=== PATIENT | female | born 1945 | race Asian ===

== ENCOUNTER 2018-01-22 16:46 | Inpatient (IN) | payer BC, OTHER ==
[2018-01-22 18:29] LABS: WHITE BLOOD COUNT 9.5 10^3/ul (4.8-10.8)
[2018-01-22 18:29] LABS: ADD MAN DIFF? NO; BASOPHIL # 0.1 10^3/ul (0.0-0.1); BASOPHILS % 0.6 % (0.0-2.0); EOSINOPHILS # 0.4 10^3/ul (0.0-0.5); EOSINOPHILS % 3.7 % (0.0-7.0); HEMATOCRIT 37.5 % (37.0-47.0); HEMOGLOBIN 11.9 g/dl (12.0-16.0); LYMPHOCYTES # 0.8 10^3/ul (0.8-2.9); LYMPHOCYTES % 7.9 % (15.0-51.0); MEAN CORPUSCULAR HEMOGLOBIN 29.5 pg (29.0-33.0); MEAN CORPUSCULAR HGB CONC 31.7 g/dl (32.0-37.0); MEAN CORPUSCULAR VOLUME 93.1 fl (82.0-101.0); MONOCYTE # 0.6 10^3/ul (0.3-0.9); MONOCYTES % 6.3 % (0.0-11.0); NEUTROPHIL # 7.7 10^3/ul (1.6-7.5); NEUTROPHILS % 81.1 % (39.0-77.0); PLATELET COUNT 199 10^3/UL (140-415); RED BLOOD COUNT 4.03 10^6/ul (4.20-5.40); RED CELL DISTRIBUTION WIDTH 15.9 % (11.5-14.5)
[2018-01-22] MEDS ORDERED: morphine 10 MG INJ IM (18:30)
[2018-01-22] MEDS: morphine 4 MG/ML VIAL IV (18:38)
[2018-01-22] MEDS: LIDOCAINE 1% (MDV) 10 ML INJ INJ (18:59)
[2018-01-22 19:04] LABS: ANION GAP 17 (8-16); BLOOD UREA NITROGEN 20 mg/dl (7-20); CALCIUM 9.6 mg/dl (8.4-10.2); CARBON DIOXIDE 31 mmol/L (21-31); CHLORIDE 96 mmol/L (97-110); CREATININE 4.04 mg/dl (0.44-1.00); GLUCOSE 87 mg/dl (70-220); POTASSIUM 4.3 mmol/L (3.5-5.1); SODIUM 140 mmol/L (135-144)
[2018-01-22] MEDS: LIDOCAINE 1% (MDV) 20 ML INJ INJ (20:01)
[2018-01-22] MEDS: LABETALOL HCL 20MG INJ IV (20:58)
[2018-01-23] MEDS ORDERED: morphine 2 MG INJ IV
[2018-01-23] MEDS ORDERED: VANCOMYCIN IV PER PHARMACY XX
[2018-01-23] MEDS ORDERED: GLUCOSE GEL 15 GRAM TUBE PO ×2 (00:30)
[2018-01-23] MEDS ORDERED: GLUCAGON 1 MG INJ IM (00:30)
[2018-01-23] MEDS ORDERED: DEXTROSE 50% 50 ML SYRINGE IV ×2 (00:30)
[2018-01-23] MEDS ORDERED: GLUCOSE GEL 15 GRAM TUBE BUCCAL (00:30)
[2018-01-23] MEDS: ACCU-CHEK XX (02:00)
[2018-01-23] MEDS ORDERED: LEVOTHYROXINE 75 MCG TAB (05:12)
[2018-01-23] MEDS ORDERED: hydrALAzine 20 MG INJ (05:26)
[2018-01-23] MEDS: hydrALAzine 20 MG INJ IV (05:29)
[2018-01-23] MEDS: PANTOPRAZOLE (EC) 40 MG TAB PO (06:39)
[2018-01-23] MEDS: LEVOTHYROXINE 75 MCG TAB PO (06:39)
[2018-01-23 06:56] LABS: ADD MAN DIFF? NO
[2018-01-23 07:04] LABS: WHITE BLOOD COUNT 7.7 10^3/ul (4.8-10.8)
[2018-01-23 07:04] LABS: BASOPHIL # 0.1 10^3/ul (0.0-0.1); BASOPHILS % 0.9 % (0.0-2.0); EOSINOPHILS # 0.3 10^3/ul (0.0-0.5); EOSINOPHILS % 4.4 % (0.0-7.0); HEMATOCRIT 32.2 % (37.0-47.0); LYMPHOCYTES # 0.8 10^3/ul (0.8-2.9); LYMPHOCYTES % 9.9 % (15.0-51.0); MEAN CORPUSCULAR HEMOGLOBIN 29.6 pg (29.0-33.0); MEAN CORPUSCULAR HGB CONC 31.1 g/dl (32.0-37.0); MEAN CORPUSCULAR VOLUME 95.3 fl (82.0-101.0); MEAN PLATELET VOLUME 9.1 fl (7.4-10.4); MONOCYTE # 0.6 10^3/ul (0.3-0.9); MONOCYTES % 8.1 % (0.0-11.0); NEUTROPHIL # 5.9 10^3/ul (1.6-7.5); NEUTROPHILS % 76.3 % (39.0-77.0); PLATELET COUNT 192 10^3/UL (140-415); RED BLOOD COUNT 3.38 10^6/ul (4.20-5.40); RED CELL DISTRIBUTION WIDTH 15.9 % (11.5-14.5)
[2018-01-23 07:20] LABS: ALANINE AMINOTRANSFERASE 14 IU/L (13-69); ALBUMIN 4.2 g/dl (3.3-4.9); ALKALINE PHOSPHATASE 137 IU/L (42-121); ANION GAP 15 (8-16); ASPARTATE AMINO TRANSFERASE 19 IU/L (15-46); BILIRUBIN,INDIRECT 0.3 mg/dl (0-1.1); BILIRUBIN,TOTAL 0.3 mg/dl (0.2-1.3); BLOOD UREA NITROGEN 25 mg/dl (7-20); CALCIUM 9.1 mg/dl (8.4-10.2); CARBON DIOXIDE 33 mmol/L (21-31); CHLORIDE 97 mmol/L (97-110); CREATININE 5.46 mg/dl (0.44-1.00); GLUCOSE 79 mg/dl (70-220); POTASSIUM 4.5 mmol/L (3.5-5.1); SODIUM 140 mmol/L (135-144)
[2018-01-23] MEDS: INSULIN ASPART [NOVOLOG] 3 ML PEN SC ×4 (08:00→20:39)
[2018-01-23 08:10] LABS: HEMOGLOBIN A1C 5.3 % (0-5.9)
[2018-01-23] MEDS: LINAGLIPTIN 5 MG TABLET PO (09:07)
[2018-01-23] MEDS: LOSARTAN 50 MG TAB PO ×2 (09:08→20:40)
[2018-01-23] MEDS: AMLODIPINE 5 MG TAB PO ×2 (09:08→20:40)
[2018-01-23] MEDS: SERTRALINE 50 MG TAB PO (09:08)
[2018-01-23] MEDS: INSULIN DETEMIR [LEVEMIR] (100 UNITS/ML) SYG SC (09:09)
[2018-01-23] MEDS: EPOETIN 10000 UNITS/1 ML INJ (ESRD) SC (17:18)
[2018-01-23] MEDS: ATORVASTATIN 20 MG TAB PO (20:40)
[2018-01-24] MEDS: ACCU-CHEK XX (01:32)
[2018-01-24 06:20] LABS: ADD MAN DIFF? NO
[2018-01-24 06:28] LABS: WHITE BLOOD COUNT 6.2 10^3/ul (4.8-10.8)
[2018-01-24 06:28] LABS: BASOPHIL # 0.1 10^3/ul (0.0-0.1); BASOPHILS % 1.3 % (0.0-2.0); EOSINOPHILS # 0.4 10^3/ul (0.0-0.5); EOSINOPHILS % 6.5 % (0.0-7.0); HEMATOCRIT 32.5 % (37.0-47.0); HEMOGLOBIN 10.1 g/dl (12.0-16.0); LYMPHOCYTES # 0.8 10^3/ul (0.8-2.9); LYMPHOCYTES % 12.8 % (15.0-51.0); MEAN CORPUSCULAR HEMOGLOBIN 29.5 pg (29.0-33.0); MEAN CORPUSCULAR HGB CONC 31.1 g/dl (32.0-37.0); MEAN PLATELET VOLUME 8.9 fl (7.4-10.4); MONOCYTE # 0.6 10^3/ul (0.3-0.9); MONOCYTES % 10.4 % (0.0-11.0); NEUTROPHIL # 4.2 10^3/ul (1.6-7.5); NEUTROPHILS % 68.7 % (39.0-77.0); PLATELET COUNT 182 10^3/UL (140-415); RED BLOOD COUNT 3.42 10^6/ul (4.20-5.40); RED CELL DISTRIBUTION WIDTH 15.7 % (11.5-14.5)
[2018-01-24] MEDS: LEVOTHYROXINE 75 MCG TAB PO (06:50)
[2018-01-24] MEDS: PANTOPRAZOLE (EC) 40 MG TAB PO (06:50)
[2018-01-24 07:05] LABS: VANCOMYCIN,TROUGH 8.1 ug/ml (10.0-20.0)
[2018-01-24 07:09] LABS: ANION GAP 18 (8-16); BLOOD UREA NITROGEN 39 mg/dl (7-20); CALCIUM 8.8 mg/dl (8.4-10.2); CARBON DIOXIDE 28 mmol/L (21-31); CHLORIDE 96 mmol/L (97-110); CREATININE 7.04 mg/dl (0.44-1.00); GLUCOSE 98 mg/dl (70-220); POTASSIUM 5.1 mmol/L (3.5-5.1); SODIUM 137 mmol/L (135-144)
[2018-01-24] MEDS: INSULIN ASPART [NOVOLOG] 3 ML PEN SC ×4 (08:00→21:00)
[2018-01-24] MEDS: PIPER-TAZO 2.25 GM (PMX) 50 ML IVPB ×2 (08:59→19:07)
[2018-01-24] MEDS: LINAGLIPTIN 5 MG TABLET PO (09:00)
[2018-01-24] MEDS: AMLODIPINE 5 MG TAB PO ×2 (09:00→20:47)
[2018-01-24] MEDS: SERTRALINE 50 MG TAB PO (09:00)
[2018-01-24] MEDS: INSULIN DETEMIR [LEVEMIR] (100 UNITS/ML) SYG SC (09:00)
[2018-01-24] MEDS: LOSARTAN 50 MG TAB PO ×2 (09:01→20:47)
[2018-01-24] MEDS: VANCOMYCIN 1 GM 250 ML IVPB (12:17)
[2018-01-24 12:33] LABS: HEPATITIS B SURFACE ANTIGEN NEGATIVE (NEGATIVE)
[2018-01-24 12:51] LABS: HEPATITIS B SURFACE ANTIBODY POSITIVE (NEGATIVE)
[2018-01-24 14:47] LABS: INR 0.99; PROTIME 13.2 Sec (11.9-14.9)
[2018-01-24 14:48] LABS: PARTIAL THROMBOPLASTIN TIME 43.9 Sec (25.0-35.0)
[2018-01-24] MEDS: ATORVASTATIN 20 MG TAB PO (20:47)
[2018-01-24] MEDS: DEXTROSE 5%-0.45% NACL 1,000 ML IV (23:24)
[2018-01-24] MEDS ORDERED: morphine LIQ (10 MG/5 ML) CUP PO (23:30)
[2018-01-24] MEDS: ACETAMINOPHEN 325 MG TAB PO (23:39)
[2018-01-25] MEDS: INSULIN ASPART [NOVOLOG] 3 ML PEN SC ×3 (00:45→09:00)
[2018-01-25] MEDS: ACCU-CHEK XX (00:45)
[2018-01-25] MEDS: PIPER-TAZO 2.25 GM (PMX) 50 ML IVPB ×3 (02:44→20:18)
[2018-01-25] MEDS: hydrALAzine 20 MG INJ IV ×3 (03:50→14:28)
[2018-01-25] MEDS: PANTOPRAZOLE (EC) 40 MG TAB PO (05:00)
[2018-01-25] MEDS: LEVOTHYROXINE 75 MCG TAB PO ×2 (06:03→13:15)
[2018-01-25 06:49] LABS: ADD MAN DIFF? NO
[2018-01-25 06:54] LABS: BASOPHIL # 0.1 10^3/ul (0.0-0.1); BASOPHILS % 1.6 % (0.0-2.0); EOSINOPHILS # 0.4 10^3/ul (0.0-0.5); HEMATOCRIT 32.1 % (37.0-47.0); HEMOGLOBIN 9.9 g/dl (12.0-16.0); LYMPHOCYTES # 0.8 10^3/ul (0.8-2.9); LYMPHOCYTES % 14.3 % (15.0-51.0); MEAN CORPUSCULAR HGB CONC 30.8 g/dl (32.0-37.0); MEAN CORPUSCULAR VOLUME 94.1 fl (82.0-101.0); MEAN PLATELET VOLUME 9.1 fl (7.4-10.4); MONOCYTE # 0.7 10^3/ul (0.3-0.9); MONOCYTES % 12.5 % (0.0-11.0); NEUTROPHIL # 3.6 10^3/ul (1.6-7.5); NEUTROPHILS % 64.2 % (39.0-77.0); PLATELET COUNT 182 10^3/UL (140-415); RED BLOOD COUNT 3.41 10^6/ul (4.20-5.40)
[2018-01-25 06:54] LABS: WHITE BLOOD COUNT 5.6 10^3/ul (4.8-10.8)
[2018-01-25] MEDS ORDERED: PROPOFOL 200 MG INJ (07:00)
[2018-01-25 07:18] LABS: ANION GAP 16 (8-16); BLOOD UREA NITROGEN 23 mg/dl (7-20); CALCIUM 8.5 mg/dl (8.4-10.2); CARBON DIOXIDE 29 mmol/L (21-31); CHLORIDE 94 mmol/L (97-110); GLUCOSE 103 mg/dl (70-220); POTASSIUM 4.6 mmol/L (3.5-5.1); SODIUM 134 mmol/L (135-144)
[2018-01-25] MEDS: INSULIN DETEMIR [LEVEMIR] (100 UNITS/ML) SYG SC (09:03)
[2018-01-25] MEDS ORDERED: NEOSTIGMINE 3 MG/3 ML SYRINGE (09:29)
[2018-01-25] MEDS ORDERED: MIDAZOLAM 1 MG/ML 2 ML INJ (09:29)
[2018-01-25] MEDS ORDERED: GLYCOPYRROLATE 0.4 MG INJ (09:29)
[2018-01-25] MEDS ORDERED: FENTAnyl 50 MCG/ML VIAL (09:29)
[2018-01-25] MEDS ORDERED: ROCURONIUM 50 MG INJ (09:29)
[2018-01-25] MEDS ORDERED: LIDOCAINE 2% (SDV) 5 ML INJ (09:29)
[2018-01-25] MEDS ORDERED: PROPOFOL 20 ML (09:29)
[2018-01-25] MEDS ORDERED: DEXAMETHASONE 4 MG/ML 1 ML INJ (09:30)
[2018-01-25] MEDS ORDERED: ONDANSETRON 4 MG INJ (09:30)
[2018-01-25] MEDS: BUPIVACAINE 0.25% (MPF) 30 ML INJ (10:24)
[2018-01-25] MEDS: LIDOCAINE 1%/EPI 30 ML INJ (10:24)
[2018-01-25] MEDS: ACETAMINOPHEN 325 MG TAB PO ×2 (13:15→21:17)
[2018-01-25] MEDS: LOSARTAN 50 MG TAB PO ×2 (13:15→20:26)
[2018-01-25] MEDS: LINAGLIPTIN 5 MG TABLET PO (13:15)
[2018-01-25] MEDS: SERTRALINE 50 MG TAB PO (13:15)
[2018-01-25] MEDS: AMLODIPINE 5 MG TAB PO ×2 (13:16→20:27)
[2018-01-25] MEDS: DEXTROSE 5%-0.45% NACL 1,000 ML IV (13:20)
[2018-01-25] MEDS: Insulin NOVOLOG SS MILD Algorithm (SS with meals and bedtime) SC ×3 (13:24→20:36)
[2018-01-25] MEDS: EPOETIN 10000 UNITS/1 ML INJ (ESRD) SC (16:57)
[2018-01-25] MEDS ORDERED: INSULIN ASPART [NOVOLOG] 3 ML PEN SC (17:35)
[2018-01-25] MEDS: ATORVASTATIN 20 MG TAB PO (20:26)
[2018-01-26] MEDS: ACCU-CHEK XX (02:17)
[2018-01-26] MEDS: PIPER-TAZO 2.25 GM (PMX) 50 ML IVPB ×3 (04:14→18:23)
[2018-01-26 05:32] LABS: ADD MAN DIFF? NO
[2018-01-26 05:34] LABS: ABNORMAL IP MESSAGE 1; BASOPHILS % 0.5 % (0.0-2.0); HEMATOCRIT 31.6 % (37.0-47.0); HEMOGLOBIN 10.1 g/dl (12.0-16.0); LYMPHOCYTES # 0.5 10^3/ul (0.8-2.9); LYMPHOCYTES % 8.6 % (15.0-51.0); MEAN CORPUSCULAR HEMOGLOBIN 29.4 pg (29.0-33.0); MEAN CORPUSCULAR VOLUME 92.1 fl (82.0-101.0); MEAN PLATELET VOLUME 8.7 fl (7.4-10.4); MONOCYTE # 0.4 10^3/ul (0.3-0.9); MONOCYTES % 7.3 % (0.0-11.0); NEUTROPHIL # 4.7 10^3/ul (1.6-7.5); NEUTROPHILS % 83.1 % (39.0-77.0); PLATELET COUNT 193 10^3/UL (140-415); RED BLOOD COUNT 3.43 10^6/ul (4.20-5.40); RED CELL DISTRIBUTION WIDTH 14.6 % (11.5-14.5)
[2018-01-26 05:34] LABS: WHITE BLOOD COUNT 5.6 10^3/ul (4.8-10.8)
[2018-01-26 05:44] LABS: POSITIVE DIFF @See below
[2018-01-26] MEDS: PANTOPRAZOLE (EC) 40 MG TAB PO (06:21)
[2018-01-26 06:23] LABS: ANION GAP 17 (8-16); BLOOD UREA NITROGEN 35 mg/dl (7-20); CALCIUM 8.6 mg/dl (8.4-10.2); CARBON DIOXIDE 27 mmol/L (21-31); CHLORIDE 93 mmol/L (97-110); GLUCOSE 139 mg/dl (70-220); POTASSIUM 5.1 mmol/L (3.5-5.1); SODIUM 132 mmol/L (135-144)
[2018-01-26] MEDS: Insulin NOVOLOG SS MILD Algorithm (SS with meals and bedtime) SC ×4 (07:30→21:00)
[2018-01-26] MEDS: ACETAMINOPHEN 325 MG TAB PO ×3 (07:55→22:54)
[2018-01-26] MEDS: SERTRALINE 50 MG TAB PO (08:38)
[2018-01-26] MEDS: LINAGLIPTIN 5 MG TABLET PO (08:38)
[2018-01-26] MEDS: INSULIN DETEMIR [LEVEMIR] (100 UNITS/ML) SYG SC (08:39)
[2018-01-26] MEDS: LOSARTAN 50 MG TAB PO ×3 (08:40→21:37)
[2018-01-26] MEDS: AMLODIPINE 5 MG TAB PO ×3 (08:41→21:37)
[2018-01-26] MEDS: ATORVASTATIN 20 MG TAB PO (21:37)
[2018-01-27] MEDS: ACCU-CHEK XX ×2 (02:00→20:56)
[2018-01-27] MEDS: PIPER-TAZO 2.25 GM (PMX) 50 ML IVPB ×3 (03:08→18:36)
[2018-01-27] MEDS: PANTOPRAZOLE (EC) 40 MG TAB PO (06:01)
[2018-01-27] MEDS: LEVOTHYROXINE 75 MCG TAB PO (06:04)
[2018-01-27] MEDS: Insulin NOVOLOG SS MILD Algorithm (SS with meals and bedtime) SC ×4 (07:30→20:56)
[2018-01-27] MEDS: LOSARTAN 50 MG TAB PO ×2 (08:07→20:56)
[2018-01-27] MEDS: SERTRALINE 50 MG TAB PO (08:07)
[2018-01-27] MEDS: LINAGLIPTIN 5 MG TABLET PO (08:07)
[2018-01-27] MEDS: AMLODIPINE 5 MG TAB PO ×2 (08:08→20:56)
[2018-01-27] MEDS: INSULIN DETEMIR [LEVEMIR] (100 UNITS/ML) SYG SC (08:08)
[2018-01-27] MEDS: SODIUM HYPOCHLORITE (1/40) 1 APPLIC BTL IRR (13:59)
[2018-01-27] MEDS: ATORVASTATIN 20 MG TAB PO (20:55)
[2018-01-28] MEDS: PIPER-TAZO 2.25 GM (PMX) 50 ML IVPB (02:37)
[2018-01-28] MEDS: ACETAMINOPHEN 325 MG TAB PO ×2 (03:09→17:35)
[2018-01-28] MEDS: PANTOPRAZOLE (EC) 40 MG TAB PO (05:45)
[2018-01-28] MEDS: LEVOTHYROXINE 75 MCG TAB PO (05:45)
[2018-01-28] MEDS: Insulin NOVOLOG SS MILD Algorithm (SS with meals and bedtime) SC ×4 (08:51→20:35)
[2018-01-28] MEDS: INSULIN DETEMIR [LEVEMIR] (100 UNITS/ML) SYG SC (08:51)
[2018-01-28] MEDS: LOSARTAN 50 MG TAB PO ×2 (08:52→20:35)
[2018-01-28] MEDS: LINAGLIPTIN 5 MG TABLET PO (08:53)
[2018-01-28] MEDS: AMLODIPINE 5 MG TAB PO ×2 (08:53→20:34)
[2018-01-28] MEDS: SERTRALINE 50 MG TAB PO (08:53)
[2018-01-28] MEDS: SODIUM HYPOCHLORITE (1/40) 1 APPLIC BTL IRR (11:23)
[2018-01-28] MEDS: AMOXICILLIN/CLAV 500 MG TAB PO (11:23)
[2018-01-28] MEDS: EPOETIN 10000 UNITS/1 ML INJ (ESRD) SC (17:28)
[2018-01-28] MEDS: ATORVASTATIN 20 MG TAB PO (20:34)
[2018-01-29] MEDS: ACCU-CHEK XX (02:00)
[2018-01-29] MEDS: hydrALAzine 20 MG INJ IV (02:52)
[2018-01-29] MEDS: PANTOPRAZOLE (EC) 40 MG TAB PO (05:17)
[2018-01-29] MEDS: LEVOTHYROXINE 75 MCG TAB PO (06:28)
[2018-01-29] MEDS: AMLODIPINE 5 MG TAB PO ×2 (09:00→20:10)
[2018-01-29] MEDS: LOSARTAN 50 MG TAB PO ×2 (09:00→20:09)
[2018-01-29] MEDS: Insulin NOVOLOG SS MILD Algorithm (SS with meals and bedtime) SC ×4 (09:03→20:11)
[2018-01-29] MEDS: INSULIN DETEMIR [LEVEMIR] (100 UNITS/ML) SYG SC (09:04)
[2018-01-29] MEDS: SERTRALINE 50 MG TAB PO (09:05)
[2018-01-29] MEDS: LINAGLIPTIN 5 MG TABLET PO (09:05)
[2018-01-29] MEDS: AMOXICILLIN/CLAV 500 MG TAB PO (09:05)
[2018-01-29] MEDS: SODIUM HYPOCHLORITE (1/40) 1 APPLIC BTL IRR (09:07)
[2018-01-29] MEDS: ACETAMINOPHEN 325 MG TAB PO (18:27)
[2018-01-29] MEDS: ATORVASTATIN 20 MG TAB PO (20:09)
[2018-01-30] MEDS: ACCU-CHEK XX (01:09)
[2018-01-30] MEDS: PANTOPRAZOLE (EC) 40 MG TAB PO (06:12)
[2018-01-30] MEDS: LEVOTHYROXINE 75 MCG TAB PO (06:13)
[2018-01-30 06:59] LABS: ADD MAN DIFF? NO
[2018-01-30 07:11] LABS: WHITE BLOOD COUNT 7.4 10^3/ul (4.8-10.8)
[2018-01-30 07:11] LABS: BASOPHILS % 0.5 % (0.0-2.0); EOSINOPHILS # 0.4 10^3/ul (0.0-0.5); EOSINOPHILS % 5.1 % (0.0-7.0); HEMATOCRIT 25.9 % (37.0-47.0); HEMOGLOBIN 8.7 g/dl (12.0-16.0); LYMPHOCYTES # 0.9 10^3/ul (0.8-2.9); LYMPHOCYTES % 12.7 % (15.0-51.0); MEAN CORPUSCULAR HEMOGLOBIN 30.7 pg (29.0-33.0); MEAN CORPUSCULAR HGB CONC 33.6 g/dl (32.0-37.0); MEAN CORPUSCULAR VOLUME 91.5 fl (82.0-101.0); MEAN PLATELET VOLUME 8.9 fl (7.4-10.4); MONOCYTE # 0.7 10^3/ul (0.3-0.9); MONOCYTES % 9.3 % (0.0-11.0); NEUTROPHIL # 5.3 10^3/ul (1.6-7.5); NEUTROPHILS % 71.6 % (39.0-77.0); NUCLEATED RED BLOOD CELLS% 0.3 /100WBC (0.0-0.0); PLATELET COUNT 218 10^3/UL (140-415); RED BLOOD COUNT 2.83 10^6/ul (4.20-5.40); RED CELL DISTRIBUTION WIDTH 16.1 % (11.5-14.5)
[2018-01-30 07:29] LABS: ANION GAP 13 (8-16); BLOOD UREA NITROGEN 24 mg/dl (7-20); CALCIUM 8.2 mg/dl (8.4-10.2); CARBON DIOXIDE 28 mmol/L (21-31); CHLORIDE 96 mmol/L (97-110); CREATININE 5.23 mg/dl (0.44-1.00); GLUCOSE 120 mg/dl (70-220); POTASSIUM 3.9 mmol/L (3.5-5.1); SODIUM 133 mmol/L (135-144)
[2018-01-30] MEDS: Insulin NOVOLOG SS MILD Algorithm (SS with meals and bedtime) SC ×3 (07:30→17:16)
[2018-01-30] MEDS: LINAGLIPTIN 5 MG TABLET PO (08:36)
[2018-01-30] MEDS: SERTRALINE 50 MG TAB PO (08:36)
[2018-01-30] MEDS: AMOXICILLIN/CLAV 500 MG TAB PO (08:36)
[2018-01-30] MEDS: AMLODIPINE 5 MG TAB PO (08:36)
[2018-01-30] MEDS: SODIUM HYPOCHLORITE (1/40) 1 APPLIC BTL IRR (08:36)
[2018-01-30] MEDS: LOSARTAN 50 MG TAB PO (08:37)
[2018-01-30] MEDS: INSULIN DETEMIR [LEVEMIR] (100 UNITS/ML) SYG SC (08:37)
[2018-01-30] MEDS: L ACIDOPHIL/B LACTIS/B LONGUM CAPSULE PO (09:35)
[2018-01-30] MEDS: EPOETIN 10000 UNITS/1 ML INJ (ESRD) SC (17:12)
== END 2018-01-30 17:40 | disposition home health service (06) | DRG 579 ==
LOC: E/R 16:46 → PP2 22:59
PROC: 0JB60ZX Excision of Chest Subcutaneous Tissue and Fascia, Open Approach, Diagnostic (ICD-10-PCS; principal; 2018-01-25 09:30)
PROC: 0J960ZZ Drainage of Chest Subcutaneous Tissue and Fascia, Open Approach (ICD-10-PCS; 2018-01-25 10:05)
PROC: 5A1D70Z Performance of Urinary Filtration, Intermittent, Less than 6 Hours Per Day (ICD-10-PCS; 2018-01-25 10:05)
PROC: 5A1D70Z Performance of Urinary Filtration, Intermittent, Less than 6 Hours Per Day (ICD-10-PCS; 2018-01-25 10:05)
PROC: 5A1D70Z Performance of Urinary Filtration, Intermittent, Less than 6 Hours Per Day (ICD-10-PCS; 2018-01-25 10:05)
DX: L02.213 Cutaneous abscess of chest wall (principal); N18.6 End stage renal disease; I13.2 Hypertensive heart and chronic kidney disease with heart failure and with stage 5 chronic kidney disease, or end stage renal disease; R22.2 Localized swelling, mass and lump, trunk; L03.313 Cellulitis of chest wall; E11.22 Type 2 diabetes mellitus with diabetic chronic kidney disease; Z99.2 Dependence on renal dialysis; I50.9 Heart failure, unspecified; E78.5 Hyperlipidemia, unspecified; K21.9 Gastro-esophageal reflux disease without esophagitis; E03.9 Hypothyroidism, unspecified; H91.90 Unspecified hearing loss, unspecified ear; E11.21 Type 2 diabetes mellitus with diabetic nephropathy; D63.1 Anemia in chronic kidney disease; Z95.0 Presence of cardiac pacemaker; B95.61 Methicillin susceptible Staphylococcus aureus infection as the cause of diseases classified elsewhere; B96.1 Klebsiella pneumoniae [K. pneumoniae] as the cause of diseases classified elsewhere
CPT/HCPCS: 36415; 71045; 76642; 80048; 80053; 80202; 82962; 83036; 84443; 85025; 85335; 85610; 85730; 86706; 87070; 87075; 87102; 87116; 87340; 88305; 88331; 88341; 88342; 90935; 96374; 99285-25

== ENCOUNTER 2018-01-31 17:46 | Emergency (ER) | payer BC ==
[2018-01-31 20:09] LABS: ADD MAN DIFF? NO
[2018-01-31 20:12] LABS: BASOPHILS % 0.4 % (0.0-2.0); EOSINOPHILS # 0.3 10^3/ul (0.0-0.5); HEMATOCRIT 23.4 % (37.0-47.0); HEMOGLOBIN 7.7 g/dl (12.0-16.0); LYMPHOCYTES # 1.1 10^3/ul (0.8-2.9); LYMPHOCYTES % 13.6 % (15.0-51.0); MEAN CORPUSCULAR HGB CONC 32.9 g/dl (32.0-37.0); MEAN CORPUSCULAR VOLUME 94.4 fl (82.0-101.0); MEAN PLATELET VOLUME 8.4 fl (7.4-10.4); MONOCYTE # 0.6 10^3/ul (0.3-0.9); MONOCYTES % 8.1 % (0.0-11.0); NEUTROPHIL # 5.7 10^3/ul (1.6-7.5); NEUTROPHILS % 73.1 % (39.0-77.0); PLATELET COUNT 188 10^3/UL (140-415); RED BLOOD COUNT 2.48 10^6/ul (4.20-5.40); RED CELL DISTRIBUTION WIDTH 17.3 % (11.5-14.5)
[2018-01-31 20:12] LABS: WHITE BLOOD COUNT 7.8 10^3/ul (4.8-10.8)
[2018-01-31 20:29] LABS: ANION GAP 15 (8-16); BLOOD UREA NITROGEN 16 mg/dl (7-20); CALCIUM 8.7 mg/dl (8.4-10.2); CARBON DIOXIDE 31 mmol/L (21-31); CHLORIDE 95 mmol/L (97-110); CREATININE 3.77 mg/dl (0.44-1.00); GLUCOSE 230 mg/dl (70-220); SODIUM 137 mmol/L (135-144)
[2018-01-31 20:32] LABS: INR 0.95; PROTIME 12.8 Sec (11.9-14.9)
[2018-01-31 20:33] LABS: PARTIAL THROMBOPLASTIN TIME 37.6 Sec (25.0-35.0)
[2018-01-31] MEDS: DESMOPRESSIN 16.5 MCG in SOD CHLORIDE 0.9% 50 ML IVPB (20:49)
== END 2018-01-31 22:09 | disposition home or self-care (01) ==
LOC: E/R 17:46
DX: L76.22 Postprocedural hemorrhage of skin and subcutaneous tissue following other procedure (principal); N18.6 End stage renal disease; I12.0 Hypertensive chronic kidney disease with stage 5 chronic kidney disease or end stage renal disease; Z79.4 Long term (current) use of insulin; Z99.2 Dependence on renal dialysis
CPT/HCPCS: 36415; 80048; 85025; 85610; 85730; 93005; 96374; 99284-25

== ENCOUNTER 2018-04-25 13:05 | Inpatient (IN) | payer BC ==
[2018-04-25 14:37] LABS: ADD MAN DIFF? NO
[2018-04-25 14:40] LABS: ABNORMAL IP MESSAGE 1; BASOPHILS % 0.6 % (0.0-2.0); EOSINOPHILS # 0.3 10^3/ul (0.0-0.5); EOSINOPHILS % 5.7 % (0.0-7.0); HEMATOCRIT 30.5 % (37.0-47.0); LYMPHOCYTES # 0.5 10^3/ul (0.8-2.9); LYMPHOCYTES % 10.4 % (15.0-51.0); MEAN CORPUSCULAR HEMOGLOBIN 30.3 pg (29.0-33.0); MEAN CORPUSCULAR HGB CONC 32.8 g/dl (32.0-37.0); MEAN CORPUSCULAR VOLUME 92.4 fl (82.0-101.0); MEAN PLATELET VOLUME 9.5 fl (7.4-10.4); MONOCYTE # 0.6 10^3/ul (0.3-0.9); MONOCYTES % 10.9 % (0.0-11.0); NEUTROPHIL # 3.7 10^3/ul (1.6-7.5); PLATELET COUNT 84 10^3/UL (140-415); RED CELL DISTRIBUTION WIDTH 15.7 % (11.5-14.5)
[2018-04-25 14:40] LABS: WHITE BLOOD COUNT 5.1 10^3/ul (4.8-10.8)
[2018-04-25 14:51] LABS: POSITIVE DIFF @See below
[2018-04-25 15:09] LABS: ALANINE AMINOTRANSFERASE 12 IU/L (13-69); ALBUMIN 4.2 g/dl (3.3-4.9); ALBUMIN/GLOBULIN RATIO 1.55; ALKALINE PHOSPHATASE 118 IU/L (42-121); ANION GAP 14 (5-13); ASPARTATE AMINO TRANSFERASE 29 IU/L (15-46); BLOOD UREA NITROGEN 43 mg/dl (7-20); CALCIUM 8.7 mg/dl (8.4-10.2); CARBON DIOXIDE 30 mmol/L (21-31); CHLORIDE 94 mmol/L (97-110); GLUCOSE 66 mg/dl (70-220); LIPASE 247 U/L (23-300); POTASSIUM 4.9 mmol/L (3.5-5.1); SODIUM 138 mmol/L (135-144); TOTAL PROTEIN 6.9 g/dl (6.1-8.1)
[2018-04-25 15:20] LABS: TROPONIN-I 0.042 ng/ml (0.000-0.120)
[2018-04-25 15:49] LABS: ADD UMIC YES; UR ASCORBIC ACID NEGATIVE (NEGATIVE); UR BACTERIA FEW /HPF (NONE SEEN); UR BILIRUBIN (Dip) NEGATIVE (NEGATIVE); UR BLOOD (Dip) 1+ mg/dL (NEGATIVE); UR CLARITY CLOUDY (CLEAR); UR COLOR AMBER (YELLOW); UR GLUCOSE (Dip) NEGATIVE (NEGATIVE); UR KETONES (Dip) NEGATIVE (NEGATIVE); UR LEUKOCYTE ESTERASE (Dip) 3+ Leu/ul (NEGATIVE); UR NITRITE (Dip) NEGATIVE (NEGATIVE); UR NONSQUAMOUS EPITHELIAL CELL 4 /HPF (NONE SEEN); UR RBC 41 /HPF (0-5); UR SPECIFIC GRAVITY (Dip) 1.015 (1.003-1.030); UR SQUAMOUS EPITHELIAL CELL MANY /HPF (FEW); UR TOTAL PROTEIN (Dip) 3+ mg/dl (NEGATIVE); UR UROBILINOGEN (Dip) NEGATIVE (NEGATIVE); UR WBC > 182 /HPF (0-5)
[2018-04-25] MEDS: CEFTRIAXONE 1 GM/50 ML (PMX) 50 ML IVPB (16:44)
[2018-04-25] MEDS: DEXTROSE 5%-0.45% NACL 1,000 ML IV (18:30)
[2018-04-25] MEDS ORDERED: DEXTROSE 50% 50 ML SYRINGE (18:45)
[2018-04-25] MEDS: INSULIN ASPART [NOVOLOG] 3 ML PEN SC (18:47)
[2018-04-25] MEDS: hydrALAzine 20 MG INJ IV (18:47)
[2018-04-25 18:52] LABS: HEPATITIS B SURFACE ANTIGEN NEGATIVE (NEGATIVE)
[2018-04-25] MEDS: DEXTROSE 50% 50 ML SYRINGE IV (18:55)
[2018-04-25 19:30] LABS: HEPATITIS B SURFACE ANTIBODY POSITIVE (NEGATIVE)
[2018-04-25] MEDS: ATORVASTATIN 20 MG TAB PO (23:48)
[2018-04-25] MEDS: AMLODIPINE 5 MG TAB PO (23:49)
[2018-04-26] MEDS: INSULIN ASPART [NOVOLOG] 3 ML PEN SC ×4 (00:15→17:32)
[2018-04-26 05:57] LABS: ADD MAN DIFF? NO
[2018-04-26 06:03] LABS: WHITE BLOOD COUNT 4.6 10^3/ul (4.8-10.8)
[2018-04-26 06:03] LABS: ABNORMAL IP MESSAGE 1; BASOPHIL # 0.1 10^3/ul (0.0-0.1); BASOPHILS % 1.1 % (0.0-2.0); EOSINOPHILS # 0.2 10^3/ul (0.0-0.5); EOSINOPHILS % 4.8 % (0.0-7.0); HEMATOCRIT 32.1 % (37.0-47.0); HEMOGLOBIN 10.6 g/dl (12.0-16.0); LYMPHOCYTES # 0.5 10^3/ul (0.8-2.9); LYMPHOCYTES % 11.5 % (15.0-51.0); MEAN CORPUSCULAR HEMOGLOBIN 30.5 pg (29.0-33.0); MEAN CORPUSCULAR VOLUME 92.5 fl (82.0-101.0); MEAN PLATELET VOLUME 10.2 fl (7.4-10.4); MONOCYTE # 0.4 10^3/ul (0.3-0.9); MONOCYTES % 9.6 % (0.0-11.0); NEUTROPHIL # 3.3 10^3/ul (1.6-7.5); NEUTROPHILS % 72.8 % (39.0-77.0); PLATELET COUNT 85 10^3/UL (140-415); RED BLOOD COUNT 3.47 10^6/ul (4.20-5.40); RED CELL DISTRIBUTION WIDTH 15.7 % (11.5-14.5)
[2018-04-26] MEDS: PANTOPRAZOLE (EC) 40 MG TAB PO (06:13)
[2018-04-26] MEDS: LEVOTHYROXINE 75 MCG TAB PO (06:13)
[2018-04-26 06:14] LABS: POSITIVE DIFF @See below
[2018-04-26 06:27] LABS: ALANINE AMINOTRANSFERASE 14 IU/L (13-69); ALBUMIN 4.3 g/dl (3.3-4.9); ALBUMIN/GLOBULIN RATIO 1.43; ALKALINE PHOSPHATASE 125 IU/L (42-121); ANION GAP 12 (5-13); ASPARTATE AMINO TRANSFERASE 35 IU/L (15-46); BLOOD UREA NITROGEN 23 mg/dl (7-20); CALCIUM 8.7 mg/dl (8.4-10.2); CARBON DIOXIDE 30 mmol/L (21-31); CHLORIDE 96 mmol/L (97-110); CHOLESTEROL 108 mg/dl (100-200); CREATININE 4.71 mg/dl (0.44-1.00); GLUCOSE 78 mg/dl (70-220); HDL CHOLESTEROL 54 mg/dl (33-92); LDL CHOLESTEROL,CALCULATED 37 mg/dl; POTASSIUM 4.5 mmol/L (3.5-5.1); SODIUM 138 mmol/L (135-144); TOTAL PROTEIN 7.3 g/dl (6.1-8.1); TRIGLYCERIDES 85 mg/dl (0-149)
[2018-04-26 06:45] LABS: IRON 42 ug/dl (35-150)
[2018-04-26 06:56] LABS: % IRON SATURATION 21 % SAT (22-52); TOTAL IRON BINDING CAPACITY 200 ug/dl (241-421)
[2018-04-26 08:12] LABS: HEMOGLOBIN A1C 5.2 % (0-5.9)
[2018-04-26] MEDS: LOSARTAN 50 MG TAB PO ×2 (08:45→20:20)
[2018-04-26] MEDS: NIFEdipine (XL) 30 MG TAB PO ×2 (08:45→20:20)
[2018-04-26] MEDS: SERTRALINE 50 MG TAB PO (08:45)
[2018-04-26] MEDS ORDERED: LOSARTAN 50 MG TAB PO (09:00)
[2018-04-26] MEDS: hydrALAzine 20 MG INJ IV ×2 (12:23→17:27)
[2018-04-26] MEDS: CEFTRIAXONE 1 GM/50 ML (PMX) 50 ML IVPB (13:57)
[2018-04-26] MEDS: EPOETIN 10000 UNITS/1 ML INJ (ESRD) SC (16:16)
[2018-04-26] MEDS ORDERED: GLUCAGON 1 MG INJ IM (17:00)
[2018-04-26] MEDS ORDERED: DEXTROSE 50% 50 ML SYRINGE IV ×2 (17:00)
[2018-04-26] MEDS ORDERED: GLUCOSE GEL 15 GRAM TUBE PO ×2 (17:00)
[2018-04-26] MEDS ORDERED: GLUCOSE GEL 15 GRAM TUBE BUCCAL (17:00)
[2018-04-26] MEDS: ATORVASTATIN 20 MG TAB PO (20:19)
[2018-04-27] MEDS: hydrALAzine 20 MG INJ IV ×2 (00:54→19:04)
[2018-04-27] MEDS: INSULIN ASPART [NOVOLOG] 3 ML PEN SC ×5 (05:13→20:46)
[2018-04-27 06:15] LABS: ADD MAN DIFF? NO
[2018-04-27 06:24] LABS: WHITE BLOOD COUNT 5.3 10^3/ul (4.8-10.8)
[2018-04-27 06:24] LABS: ABNORMAL IP MESSAGE 1; BASOPHILS % 0.8 % (0.0-2.0); EOSINOPHILS # 0.1 10^3/ul (0.0-0.5); EOSINOPHILS % 2.4 % (0.0-7.0); HEMATOCRIT 32.2 % (37.0-47.0); HEMOGLOBIN 10.6 g/dl (12.0-16.0); LYMPHOCYTES # 0.6 10^3/ul (0.8-2.9); LYMPHOCYTES % 10.7 % (15.0-51.0); MEAN CORPUSCULAR HEMOGLOBIN 30.3 pg (29.0-33.0); MEAN CORPUSCULAR HGB CONC 32.9 g/dl (32.0-37.0); MEAN PLATELET VOLUME 10.7 fl (7.4-10.4); MONOCYTE # 0.4 10^3/ul (0.3-0.9); MONOCYTES % 8.3 % (0.0-11.0); NEUTROPHIL # 4.1 10^3/ul (1.6-7.5); NEUTROPHILS % 77.4 % (39.0-77.0); PLATELET COUNT 74 10^3/UL (140-415); RED CELL DISTRIBUTION WIDTH 15.5 % (11.5-14.5)
[2018-04-27 06:45] LABS: ANION GAP 14 (5-13); BLOOD UREA NITROGEN 40 mg/dl (7-20); CALCIUM 8.7 mg/dl (8.4-10.2); CARBON DIOXIDE 26 mmol/L (21-31); CHLORIDE 96 mmol/L (97-110); CREATININE 6.76 mg/dl (0.44-1.00); GLUCOSE 93 mg/dl (70-220); PHOSPHORUS 4.1 mg/dl (2.5-4.9); POTASSIUM 5.5 mmol/L (3.5-5.1); SODIUM 136 mmol/L (135-144)
[2018-04-27 06:48] LABS: POSITIVE DIFF @See below
[2018-04-27] MEDS: PANTOPRAZOLE (EC) 40 MG TAB PO ×2 (06:49→07:00)
[2018-04-27] MEDS: LEVOTHYROXINE 75 MCG TAB PO ×2 (06:49→07:00)
[2018-04-27] MEDS: CEFTRIAXONE 1 GM/50 ML (PMX) 50 ML IVPB (13:59)
[2018-04-27] MEDS: SERTRALINE 50 MG TAB PO (14:00)
[2018-04-27] MEDS: NIFEdipine (XL) 30 MG TAB PO ×2 (14:01→20:46)
[2018-04-27] MEDS: LOSARTAN 50 MG TAB PO ×2 (14:01→20:46)
[2018-04-27] MEDS: ATORVASTATIN 20 MG TAB PO (20:46)
[2018-04-28] MEDS: hydrALAzine 20 MG INJ IV ×2 (01:25)
[2018-04-28] MEDS: ACCU-CHEK XX (01:29)
[2018-04-28] MEDS: NITROGLYCERIN 2% 1 GM OINT PKT TD ×5 (02:33→23:14)
[2018-04-28 06:02] LABS: ADD MAN DIFF? NO
[2018-04-28 06:04] LABS: WHITE BLOOD COUNT 5.7 10^3/ul (4.8-10.8)
[2018-04-28 06:04] LABS: ABNORMAL IP MESSAGE 1; BASOPHIL # 0.1 10^3/ul (0.0-0.1); BASOPHILS % 1.1 % (0.0-2.0); EOSINOPHILS # 0.2 10^3/ul (0.0-0.5); EOSINOPHILS % 2.6 % (0.0-7.0); HEMATOCRIT 33.4 % (37.0-47.0); HEMOGLOBIN 10.9 g/dl (12.0-16.0); LYMPHOCYTES # 0.9 10^3/ul (0.8-2.9); MEAN CORPUSCULAR HEMOGLOBIN 30.4 pg (29.0-33.0); MEAN CORPUSCULAR HGB CONC 32.6 g/dl (32.0-37.0); MEAN CORPUSCULAR VOLUME 93.3 fl (82.0-101.0); MEAN PLATELET VOLUME 9.5 fl (7.4-10.4); MONOCYTE # 0.7 10^3/ul (0.3-0.9); NEUTROPHIL # 3.9 10^3/ul (1.6-7.5); NEUTROPHILS % 68.6 % (39.0-77.0); PLATELET COUNT 72 10^3/UL (140-415); RED BLOOD COUNT 3.58 10^6/ul (4.20-5.40); RED CELL DISTRIBUTION WIDTH 15.4 % (11.5-14.5)
[2018-04-28] MEDS: PANTOPRAZOLE (EC) 40 MG TAB PO (06:13)
[2018-04-28] MEDS: LEVOTHYROXINE 75 MCG TAB PO (06:13)
[2018-04-28 06:26] LABS: POSITIVE DIFF @See below
[2018-04-28 06:31] LABS: ALANINE AMINOTRANSFERASE < 6 IU/L (13-69); ALKALINE PHOSPHATASE 134 IU/L (42-121); ANION GAP 12 (5-13); ASPARTATE AMINO TRANSFERASE 56 IU/L (15-46); BILIRUBIN,INDIRECT 0.2 mg/dl (0-1.1); BILIRUBIN,TOTAL 0.2 mg/dl (0.2-1.3); BLOOD UREA NITROGEN 27 mg/dl (7-20); CALCIUM 8.6 mg/dl (8.4-10.2); CARBON DIOXIDE 25 mmol/L (21-31); CHLORIDE 100 mmol/L (97-110); CREATININE 4.99 mg/dl (0.44-1.00); GLUCOSE 80 mg/dl (70-220); POTASSIUM 5.7 mmol/L (3.5-5.1); SODIUM 137 mmol/L (135-144)
[2018-04-28 06:37] LABS: ANION GAP 9 (5-13); BLOOD UREA NITROGEN 28 mg/dl (7-20); CALCIUM 8.6 mg/dl (8.4-10.2); CARBON DIOXIDE 30 mmol/L (21-31); CHLORIDE 98 mmol/L (97-110); CREATININE 4.87 mg/dl (0.44-1.00); GLUCOSE 84 mg/dl (70-220); SODIUM 137 mmol/L (135-144)
[2018-04-28] MEDS: INSULIN ASPART [NOVOLOG] 3 ML PEN SC ×4 (07:54→21:00)
[2018-04-28] MEDS: LOSARTAN 50 MG TAB PO ×2 (07:56→21:30)
[2018-04-28] MEDS: SERTRALINE 50 MG TAB PO (07:56)
[2018-04-28] MEDS: NIFEdipine (XL) 30 MG TAB PO ×2 (07:57→21:31)
[2018-04-28] MEDS: CEFTRIAXONE 1 GM/50 ML (PMX) 50 ML IVPB (13:55)
[2018-04-28] MEDS: ATORVASTATIN 20 MG TAB PO (21:30)
[2018-04-29] MEDS: hydrALAzine 20 MG INJ IV (01:14)
[2018-04-29] MEDS: ACETAMINOPHEN 500 MG TAB PO ×2 (01:21→09:59)
[2018-04-29] MEDS: ACCU-CHEK XX (01:31)
[2018-04-29] MEDS: NITROGLYCERIN 2% 1 GM OINT PKT TD ×2 (05:22→11:18)
[2018-04-29] MEDS: PANTOPRAZOLE (EC) 40 MG TAB PO (05:29)
[2018-04-29] MEDS: LEVOTHYROXINE 75 MCG TAB PO (05:30)
[2018-04-29 05:57] LABS: ANION GAP 14 (5-13); BLOOD UREA NITROGEN 27 mg/dl (7-20); CALCIUM 8.3 mg/dl (8.4-10.2); CARBON DIOXIDE 28 mmol/L (21-31); CHLORIDE 95 mmol/L (97-110); CREATININE 4.21 mg/dl (0.44-1.00); GLUCOSE 87 mg/dl (70-220); POTASSIUM 4.5 mmol/L (3.5-5.1); SODIUM 137 mmol/L (135-144)
[2018-04-29] MEDS: INSULIN ASPART [NOVOLOG] 3 ML PEN SC ×4 (07:58→21:00)
[2018-04-29] MEDS: SERTRALINE 50 MG TAB PO (08:00)
[2018-04-29] MEDS: LOSARTAN 50 MG TAB PO ×2 (08:00→21:16)
[2018-04-29] MEDS: NIFEdipine (XL) 60 MG TAB PO (08:03)
[2018-04-29] MEDS ORDERED: VALACYCLOVIR 500 MG TAB PO (09:00)
[2018-04-29] MEDS: VALACYCLOVIR 500 MG TAB PO (09:51)
[2018-04-29] MEDS: LEVOFLOXACIN 250 MG TAB PO (09:52)
[2018-04-29] MEDS: LABETALOL 100 MG TAB PO (09:52)
[2018-04-29 12:56] LABS: ADD UMIC YES; UR AMORPHOUS CRYSTAL FEW /HPF (NONE SEEN); UR ASCORBIC ACID NEGATIVE (NEGATIVE); UR BACTERIA FEW /HPF (NONE SEEN); UR BILIRUBIN (Dip) NEGATIVE (NEGATIVE); UR BLOOD (Dip) 2+ mg/dL (NEGATIVE); UR CLARITY CLOUDY (CLEAR); UR COLOR AMBER (YELLOW); UR GLUCOSE (Dip) NEGATIVE (NEGATIVE); UR KETONES (Dip) NEGATIVE (NEGATIVE); UR LEUKOCYTE ESTERASE (Dip) TRACE Leu/ul (NEGATIVE); UR NITRITE (Dip) NEGATIVE (NEGATIVE); UR NONSQUAMOUS EPITHELIAL CELL 2 /HPF (NONE SEEN); UR RBC 131 /HPF (0-5); UR SPECIFIC GRAVITY (Dip) 1.017 (1.003-1.030); UR SQUAMOUS EPITHELIAL CELL FEW /HPF (FEW); UR TOTAL PROTEIN (Dip) 3+ mg/dl (NEGATIVE); UR UROBILINOGEN (Dip) NEGATIVE (NEGATIVE); UR WBC 31 /HPF (0-5)
[2018-04-29] MEDS: ATORVASTATIN 20 MG TAB PO (21:16)
[2018-04-29] MEDS: NIFEdipine (XL) 30 MG TAB PO (21:16)
[2018-04-30] MEDS: ACCU-CHEK XX (01:28)
[2018-04-30] MEDS: INSULIN ASPART [NOVOLOG] 3 ML PEN SC ×4 (08:00→21:00)
[2018-04-30] MEDS: LEVOTHYROXINE 75 MCG TAB PO (08:27)
[2018-04-30] MEDS: PANTOPRAZOLE (EC) 40 MG TAB PO (08:28)
[2018-04-30] MEDS: SERTRALINE 50 MG TAB PO (08:30)
[2018-04-30] MEDS: NIFEdipine (XL) 60 MG TAB PO (08:30)
[2018-04-30] MEDS: VALACYCLOVIR 500 MG TAB PO (08:31)
[2018-04-30] MEDS: LOSARTAN 50 MG TAB PO ×2 (08:31→20:15)
[2018-04-30 08:52] LABS: ADD MAN DIFF? NO
[2018-04-30 08:58] LABS: ABNORMAL IP MESSAGE 1; BASOPHILS % 0.5 % (0.0-2.0); EOSINOPHILS # 0.2 10^3/ul (0.0-0.5); EOSINOPHILS % 5.2 % (0.0-7.0); HEMATOCRIT 32.3 % (37.0-47.0); HEMOGLOBIN 10.7 g/dl (12.0-16.0); LYMPHOCYTES # 0.5 10^3/ul (0.8-2.9); LYMPHOCYTES % 11.9 % (15.0-51.0); MEAN CORPUSCULAR HGB CONC 33.1 g/dl (32.0-37.0); MEAN CORPUSCULAR VOLUME 90.5 fl (82.0-101.0); MEAN PLATELET VOLUME 9.1 fl (7.4-10.4); MONOCYTE # 0.3 10^3/ul (0.3-0.9); MONOCYTES % 8.5 % (0.0-11.0); NEUTROPHILS % 73.4 % (39.0-77.0); PLATELET COUNT 91 10^3/UL (140-415); RED BLOOD COUNT 3.57 10^6/ul (4.20-5.40); RED CELL DISTRIBUTION WIDTH 14.7 % (11.5-14.5)
[2018-04-30 09:00] LABS: POSITIVE DIFF @See below
[2018-04-30] MEDS: SILVER SULFADIAZINE 1% 25 GM CR TOP ×2 (09:00→20:16)
[2018-04-30 09:11] LABS: ALANINE AMINOTRANSFERASE 24 IU/L (13-69); ALBUMIN 3.8 g/dl (3.3-4.9); ALBUMIN/GLOBULIN RATIO 1.26; ALKALINE PHOSPHATASE 121 IU/L (42-121); ANION GAP 10 (5-13); ASPARTATE AMINO TRANSFERASE 29 IU/L (15-46); BLOOD UREA NITROGEN 15 mg/dl (7-20); CALCIUM 8.1 mg/dl (8.4-10.2); CARBON DIOXIDE 31 mmol/L (21-31); CHLORIDE 98 mmol/L (97-110); CREATININE 3.11 mg/dl (0.44-1.00); GLUCOSE 109 mg/dl (70-220); POTASSIUM 3.8 mmol/L (3.5-5.1); SODIUM 139 mmol/L (135-144); TOTAL PROTEIN 6.8 g/dl (6.1-8.1)
[2018-04-30 09:13] LABS: PHOSPHORUS 3.1 mg/dl (2.5-4.9)
[2018-04-30] MEDS: hydrALAzine 20 MG INJ IV (17:38)
[2018-04-30] MEDS: ATORVASTATIN 20 MG TAB PO (20:16)
[2018-04-30] MEDS: NIFEdipine (XL) 30 MG TAB PO (21:41)
[2018-05-01] MEDS: ACETAMINOPHEN 500 MG TAB PO ×2 (00:28→09:37)
[2018-05-01] MEDS: ACCU-CHEK XX (01:54)
[2018-05-01 05:14] LABS: ADD MAN DIFF? NO
[2018-05-01 05:16] LABS: BASOPHILS % 0.8 % (0.0-2.0); EOSINOPHILS # 0.3 10^3/ul (0.0-0.5); EOSINOPHILS % 5.7 % (0.0-7.0); HEMATOCRIT 30.9 % (37.0-47.0); HEMOGLOBIN 10.3 g/dl (12.0-16.0); LYMPHOCYTES # 0.8 10^3/ul (0.8-2.9); LYMPHOCYTES % 17.5 % (15.0-51.0); MEAN CORPUSCULAR HEMOGLOBIN 30.2 pg (29.0-33.0); MEAN CORPUSCULAR HGB CONC 33.3 g/dl (32.0-37.0); MEAN CORPUSCULAR VOLUME 90.6 fl (82.0-101.0); MEAN PLATELET VOLUME 9.8 fl (7.4-10.4); MONOCYTE # 0.4 10^3/ul (0.3-0.9); MONOCYTES % 9.1 % (0.0-11.0); NEUTROPHIL # 3.2 10^3/ul (1.6-7.5); NEUTROPHILS % 66.5 % (39.0-77.0); PLATELET COUNT 110 10^3/UL (140-415); RED BLOOD COUNT 3.41 10^6/ul (4.20-5.40); RED CELL DISTRIBUTION WIDTH 14.8 % (11.5-14.5)
[2018-05-01 05:16] LABS: WHITE BLOOD COUNT 4.7 10^3/ul (4.8-10.8)
[2018-05-01 05:35] LABS: ANION GAP 9 (5-13); BLOOD UREA NITROGEN 36 mg/dl (7-20); CALCIUM 8.1 mg/dl (8.4-10.2); CARBON DIOXIDE 29 mmol/L (21-31); CHLORIDE 99 mmol/L (97-110); CREATININE 4.86 mg/dl (0.44-1.00); GLUCOSE 101 mg/dl (70-220); POTASSIUM 4.8 mmol/L (3.5-5.1); SODIUM 137 mmol/L (135-144)
[2018-05-01] MEDS: LEVOTHYROXINE 75 MCG TAB PO (06:37)
[2018-05-01] MEDS: PANTOPRAZOLE (EC) 40 MG TAB PO (06:37)
[2018-05-01] MEDS: INSULIN ASPART [NOVOLOG] 3 ML PEN SC ×4 (08:00→20:55)
[2018-05-01] MEDS: LOSARTAN 50 MG TAB PO ×2 (08:14→20:56)
[2018-05-01] MEDS: NIFEdipine (XL) 60 MG TAB PO (08:15)
[2018-05-01] MEDS: SILVER SULFADIAZINE 1% 25 GM CR TOP ×2 (08:15→20:55)
[2018-05-01] MEDS: VALACYCLOVIR 500 MG TAB PO (08:15)
[2018-05-01] MEDS: SERTRALINE 50 MG TAB PO (08:15)
[2018-05-01] MEDS: LEVOFLOXACIN 250 MG TAB PO (08:16)
[2018-05-01] MEDS ORDERED: METOPROLOL (XL) 25 MG TAB PO (09:00)
[2018-05-01] MEDS: hydrALAzine 20 MG INJ IV (12:23)
[2018-05-01] MEDS: ATORVASTATIN 20 MG TAB PO (20:55)
[2018-05-01] MEDS: DOXAZOSIN 1 MG TAB PO (20:57)
[2018-05-01] MEDS: NIFEdipine (XL) 30 MG TAB PO (20:57)
[2018-05-02] MEDS: ACCU-CHEK XX (01:55)
[2018-05-02 05:43] LABS: ADD MAN DIFF? NO
[2018-05-02 05:55] LABS: BASOPHIL # 0.1 10^3/ul (0.0-0.1); BASOPHILS % 1.1 % (0.0-2.0); EOSINOPHILS # 0.3 10^3/ul (0.0-0.5); EOSINOPHILS % 5.7 % (0.0-7.0); HEMATOCRIT 32.2 % (37.0-47.0); HEMOGLOBIN 10.6 g/dl (12.0-16.0); LYMPHOCYTES # 0.8 10^3/ul (0.8-2.9); LYMPHOCYTES % 15.9 % (15.0-51.0); MEAN CORPUSCULAR HEMOGLOBIN 29.9 pg (29.0-33.0); MEAN CORPUSCULAR HGB CONC 32.9 g/dl (32.0-37.0); MONOCYTE # 0.4 10^3/ul (0.3-0.9); MONOCYTES % 9.1 % (0.0-11.0); NEUTROPHIL # 3.2 10^3/ul (1.6-7.5); NEUTROPHILS % 67.6 % (39.0-77.0); PLATELET COUNT 115 10^3/UL (140-415); RED BLOOD COUNT 3.54 10^6/ul (4.20-5.40); RED CELL DISTRIBUTION WIDTH 14.7 % (11.5-14.5)
[2018-05-02 05:55] LABS: WHITE BLOOD COUNT 4.7 10^3/ul (4.8-10.8)
[2018-05-02] MEDS: PANTOPRAZOLE (EC) 40 MG TAB PO (06:08)
[2018-05-02] MEDS: LEVOTHYROXINE 75 MCG TAB PO (06:08)
[2018-05-02 06:35] LABS: ANION GAP 13 (5-13); BLOOD UREA NITROGEN 58 mg/dl (7-20); CARBON DIOXIDE 24 mmol/L (21-31); CHLORIDE 97 mmol/L (97-110); CREATININE 6.75 mg/dl (0.44-1.00); GLUCOSE 107 mg/dl (70-220); SODIUM 134 mmol/L (135-144)
[2018-05-02] MEDS: INSULIN ASPART [NOVOLOG] 3 ML PEN SC ×4 (08:39→20:23)
[2018-05-02] MEDS: SERTRALINE 50 MG TAB PO (11:45)
[2018-05-02] MEDS: NIFEdipine (XL) 60 MG TAB PO (11:45)
[2018-05-02] MEDS: LOSARTAN 50 MG TAB PO ×2 (11:45→20:19)
[2018-05-02] MEDS: VALACYCLOVIR 500 MG TAB PO (11:45)
[2018-05-02] MEDS: SILVER SULFADIAZINE 1% 25 GM CR TOP ×2 (11:46→20:19)
[2018-05-02] MEDS: hydrALAzine 20 MG INJ IV (13:40)
[2018-05-02] MEDS: ACETAMINOPHEN 500 MG TAB PO (13:49)
[2018-05-02] MEDS: CLONIDINE 0.2 MG/24 HR PATCH TRANSDERM (16:17)
[2018-05-02] MEDS: MINOXIDIL 2.5 MG TAB PO ×2 (17:16→20:19)
[2018-05-02] MEDS: NIFEdipine (XL) 30 MG TAB PO (20:18)
[2018-05-02] MEDS: ATORVASTATIN 20 MG TAB PO (20:18)
[2018-05-02] MEDS: DOXAZOSIN 2 MG TAB PO (20:19)
[2018-05-03] MEDS: ACCU-CHEK XX (02:00)
[2018-05-03 05:48] LABS: ADD MAN DIFF? NO
[2018-05-03 05:49] LABS: EOSINOPHILS # 0.3 10^3/ul (0.0-0.5); EOSINOPHILS % 6.8 % (0.0-7.0); HEMATOCRIT 30.9 % (37.0-47.0); HEMOGLOBIN 10.2 g/dl (12.0-16.0); LYMPHOCYTES # 0.6 10^3/ul (0.8-2.9); LYMPHOCYTES % 15.8 % (15.0-51.0); MEAN CORPUSCULAR HEMOGLOBIN 29.9 pg (29.0-33.0); MEAN CORPUSCULAR VOLUME 90.6 fl (82.0-101.0); MEAN PLATELET VOLUME 9.4 fl (7.4-10.4); MONOCYTE # 0.4 10^3/ul (0.3-0.9); NEUTROPHIL # 2.6 10^3/ul (1.6-7.5); NEUTROPHILS % 64.6 % (39.0-77.0); PLATELET COUNT 114 10^3/UL (140-415); RED BLOOD COUNT 3.41 10^6/ul (4.20-5.40); RED CELL DISTRIBUTION WIDTH 14.8 % (11.5-14.5)
[2018-05-03] MEDS: LEVOTHYROXINE 75 MCG TAB PO (05:56)
[2018-05-03] MEDS: PANTOPRAZOLE (EC) 40 MG TAB PO (05:56)
[2018-05-03 06:19] LABS: ANION GAP 12 (5-13); BLOOD UREA NITROGEN 47 mg/dl (7-20); CALCIUM 8.2 mg/dl (8.4-10.2); CARBON DIOXIDE 27 mmol/L (21-31); CHLORIDE 99 mmol/L (97-110); CREATININE 5.22 mg/dl (0.44-1.00); GLUCOSE 117 mg/dl (70-220); SODIUM 138 mmol/L (135-144)
[2018-05-03 07:15] LABS: FOLATE 7.2 ng/ml (2.8-20.0)
[2018-05-03] MEDS: INSULIN ASPART [NOVOLOG] 3 ML PEN SC ×4 (08:00→20:56)
[2018-05-03] MEDS: SERTRALINE 50 MG TAB PO (08:35)
[2018-05-03] MEDS: NIFEdipine (XL) 60 MG TAB PO (08:35)
[2018-05-03] MEDS: LOSARTAN 50 MG TAB PO ×2 (08:35→20:56)
[2018-05-03] MEDS: VALACYCLOVIR 500 MG TAB PO (08:35)
[2018-05-03] MEDS: MINOXIDIL 2.5 MG TAB PO ×3 (08:36→20:55)
[2018-05-03] MEDS: SILVER SULFADIAZINE 1% 25 GM CR TOP ×2 (08:37→20:57)
[2018-05-03] MEDS: EPOETIN 10000 UNITS/1 ML INJ (ESRD) SC (17:51)
[2018-05-03] MEDS: ATORVASTATIN 20 MG TAB PO (20:54)
[2018-05-03] MEDS: NIFEdipine (XL) 30 MG TAB PO (20:55)
[2018-05-03] MEDS: DOXAZOSIN 2 MG TAB PO (20:55)
[2018-05-04] MEDS: ACCU-CHEK XX (02:00)
[2018-05-04] MEDS: LEVOTHYROXINE 75 MCG TAB PO (06:02)
[2018-05-04] MEDS: PANTOPRAZOLE (EC) 40 MG TAB PO (06:02)
[2018-05-04 06:05] LABS: ADD MAN DIFF? NO
[2018-05-04 06:12] LABS: EOSINOPHILS # 0.2 10^3/ul (0.0-0.5); EOSINOPHILS % 5.5 % (0.0-7.0); HEMATOCRIT 28.9 % (37.0-47.0); HEMOGLOBIN 9.9 g/dl (12.0-16.0); LYMPHOCYTES # 0.6 10^3/ul (0.8-2.9); LYMPHOCYTES % 15.3 % (15.0-51.0); MEAN CORPUSCULAR HEMOGLOBIN 31.1 pg (29.0-33.0); MEAN CORPUSCULAR HGB CONC 34.3 g/dl (32.0-37.0); MEAN CORPUSCULAR VOLUME 90.9 fl (82.0-101.0); MEAN PLATELET VOLUME 8.8 fl (7.4-10.4); MONOCYTE # 0.4 10^3/ul (0.3-0.9); MONOCYTES % 9.3 % (0.0-11.0); NEUTROPHIL # 2.7 10^3/ul (1.6-7.5); NEUTROPHILS % 67.6 % (39.0-77.0); PLATELET COUNT 104 10^3/UL (140-415); RED BLOOD COUNT 3.18 10^6/ul (4.20-5.40); RED CELL DISTRIBUTION WIDTH 14.6 % (11.5-14.5)
[2018-05-04 07:13] LABS: ANION GAP 12 (5-13); BLOOD UREA NITROGEN 66 mg/dl (7-20); CALCIUM 7.8 mg/dl (8.4-10.2); CARBON DIOXIDE 25 mmol/L (21-31); CHLORIDE 98 mmol/L (97-110); GLUCOSE 135 mg/dl (70-220); POTASSIUM 5.1 mmol/L (3.5-5.1); SODIUM 135 mmol/L (135-144)
[2018-05-04] MEDS: INSULIN ASPART [NOVOLOG] 3 ML PEN SC ×4 (08:00→20:30)
[2018-05-04] MEDS: SERTRALINE 50 MG TAB PO (08:58)
[2018-05-04] MEDS: VALACYCLOVIR 500 MG TAB PO (08:58)
[2018-05-04] MEDS: SILVER SULFADIAZINE 1% 25 GM CR TOP ×2 (08:58→20:29)
[2018-05-04] MEDS: SOD CHLORIDE 0.9% 500 ML IV (10:20)
[2018-05-04] MEDS: NIFEdipine (XL) 30 MG TAB PO ×2 (14:00→20:28)
[2018-05-04] MEDS: LOSARTAN 50 MG TAB PO ×2 (14:02→20:28)
[2018-05-04] MEDS: NIFEdipine (XL) 60 MG TAB PO (14:07)
[2018-05-04] MEDS: DOXAZOSIN 2 MG TAB PO (20:28)
[2018-05-04] MEDS: MINOXIDIL 2.5 MG TAB PO (20:28)
[2018-05-04] MEDS: ATORVASTATIN 20 MG TAB PO (20:28)
[2018-05-05] MEDS: ACCU-CHEK XX (02:00)
[2018-05-05 06:12] LABS: ADD MAN DIFF? NO
[2018-05-05 06:23] LABS: WHITE BLOOD COUNT 4.6 10^3/ul (4.8-10.8)
[2018-05-05 06:23] LABS: BASOPHIL # 0.1 10^3/ul (0.0-0.1); BASOPHILS % 1.3 % (0.0-2.0); EOSINOPHILS # 0.2 10^3/ul (0.0-0.5); EOSINOPHILS % 4.6 % (0.0-7.0); HEMATOCRIT 28.5 % (37.0-47.0); HEMOGLOBIN 9.6 g/dl (12.0-16.0); LYMPHOCYTES # 0.9 10^3/ul (0.8-2.9); LYMPHOCYTES % 18.7 % (15.0-51.0); MEAN CORPUSCULAR HEMOGLOBIN 30.6 pg (29.0-33.0); MEAN CORPUSCULAR HGB CONC 33.7 g/dl (32.0-37.0); MEAN CORPUSCULAR VOLUME 90.8 fl (82.0-101.0); MEAN PLATELET VOLUME 9.9 fl (7.4-10.4); MONOCYTE # 0.5 10^3/ul (0.3-0.9); MONOCYTES % 9.8 % (0.0-11.0); NEUTROPHILS % 64.7 % (39.0-77.0); PLATELET COUNT 120 10^3/UL (140-415); RED BLOOD COUNT 3.14 10^6/ul (4.20-5.40); RED CELL DISTRIBUTION WIDTH 15.1 % (11.5-14.5)
[2018-05-05] MEDS: PANTOPRAZOLE (EC) 40 MG TAB PO (06:30)
[2018-05-05] MEDS: LEVOTHYROXINE 75 MCG TAB PO (06:30)
[2018-05-05 07:06] LABS: ANION GAP 11 (5-13); BLOOD UREA NITROGEN 40 mg/dl (7-20); CARBON DIOXIDE 28 mmol/L (21-31); CHLORIDE 96 mmol/L (97-110); CREATININE 4.73 mg/dl (0.44-1.00); GLUCOSE 116 mg/dl (70-220); POTASSIUM 4.8 mmol/L (3.5-5.1); SODIUM 135 mmol/L (135-144)
[2018-05-05] MEDS: INSULIN ASPART [NOVOLOG] 3 ML PEN SC ×4 (08:00→21:00)
[2018-05-05] MEDS: SERTRALINE 50 MG TAB PO (08:06)
[2018-05-05] MEDS: VALACYCLOVIR 500 MG TAB PO (08:06)
[2018-05-05] MEDS: LOSARTAN 50 MG TAB PO ×2 (08:06→21:10)
[2018-05-05] MEDS: MINOXIDIL 2.5 MG TAB PO (08:07)
[2018-05-05] MEDS: NIFEdipine (XL) 60 MG TAB PO (08:08)
[2018-05-05] MEDS: SILVER SULFADIAZINE 1% 25 GM CR TOP ×2 (08:09→21:10)
[2018-05-05] MEDS: NIFEdipine (XL) 30 MG TAB PO (21:09)
[2018-05-05] MEDS: ATORVASTATIN 20 MG TAB PO (21:09)
[2018-05-05] MEDS: DOXAZOSIN 2 MG TAB PO (21:10)
[2018-05-06] MEDS: ACCU-CHEK XX (01:39)
[2018-05-06 06:11] LABS: ADD MAN DIFF? NO
[2018-05-06 06:15] LABS: WHITE BLOOD COUNT 4.6 10^3/ul (4.8-10.8)
[2018-05-06 06:15] LABS: BASOPHIL # 0.1 10^3/ul (0.0-0.1); BASOPHILS % 1.1 % (0.0-2.0); EOSINOPHILS # 0.2 10^3/ul (0.0-0.5); EOSINOPHILS % 3.7 % (0.0-7.0); HEMATOCRIT 29.3 % (37.0-47.0); HEMOGLOBIN 9.8 g/dl (12.0-16.0); LYMPHOCYTES # 0.9 10^3/ul (0.8-2.9); LYMPHOCYTES % 19.6 % (15.0-51.0); MEAN CORPUSCULAR HGB CONC 33.4 g/dl (32.0-37.0); MEAN CORPUSCULAR VOLUME 92.7 fl (82.0-101.0); MEAN PLATELET VOLUME 9.5 fl (7.4-10.4); MONOCYTE # 0.6 10^3/ul (0.3-0.9); NEUTROPHIL # 2.9 10^3/ul (1.6-7.5); NEUTROPHILS % 62.9 % (39.0-77.0); PLATELET COUNT 136 10^3/UL (140-415); RED BLOOD COUNT 3.16 10^6/ul (4.20-5.40); RED CELL DISTRIBUTION WIDTH 15.6 % (11.5-14.5)
[2018-05-06] MEDS: LEVOTHYROXINE 75 MCG TAB PO (06:29)
[2018-05-06] MEDS: PANTOPRAZOLE (EC) 40 MG TAB PO (06:29)
[2018-05-06 06:36] LABS: ANION GAP 13 (5-13); BLOOD UREA NITROGEN 60 mg/dl (7-20); CALCIUM 8.3 mg/dl (8.4-10.2); CARBON DIOXIDE 25 mmol/L (21-31); CHLORIDE 98 mmol/L (97-110); CREATININE 6.84 mg/dl (0.44-1.00); GLUCOSE 146 mg/dl (70-220); SODIUM 136 mmol/L (135-144)
[2018-05-06 06:59] LABS: POTASSIUM 4.9 mmol/L (3.5-5.1)
[2018-05-06] MEDS: SILVER SULFADIAZINE 1% 25 GM CR TOP ×2 (07:58→20:51)
[2018-05-06] MEDS: INSULIN ASPART [NOVOLOG] 3 ML PEN SC ×4 (08:17→21:26)
[2018-05-06] MEDS: NIFEdipine (XL) 60 MG TAB PO (08:50)
[2018-05-06] MEDS: SERTRALINE 50 MG TAB PO (08:50)
[2018-05-06] MEDS: LOSARTAN 50 MG TAB PO ×2 (08:50→20:50)
[2018-05-06] MEDS ORDERED: MINOXIDIL 2.5 MG TAB PO (09:00)
[2018-05-06] MEDS: EPOETIN 10000 UNITS/1 ML INJ (ESRD) SC (17:23)
[2018-05-06] MEDS: DOXAZOSIN 2 MG TAB PO (20:50)
[2018-05-06] MEDS: NIFEdipine (XL) 30 MG TAB PO (20:50)
[2018-05-06] MEDS: ATORVASTATIN 20 MG TAB PO (20:50)
[2018-05-07] MEDS: ACCU-CHEK XX (02:36)
[2018-05-07] MEDS: PANTOPRAZOLE (EC) 40 MG TAB PO (06:29)
[2018-05-07] MEDS: LEVOTHYROXINE 75 MCG TAB PO (06:29)
[2018-05-07 06:44] LABS: ANION GAP 14 (5-13); BLOOD UREA NITROGEN 72 mg/dl (7-20); CALCIUM 8.2 mg/dl (8.4-10.2); CARBON DIOXIDE 22 mmol/L (21-31); CHLORIDE 97 mmol/L (97-110); CREATININE 8.13 mg/dl (0.44-1.00); GLUCOSE 137 mg/dl (70-220); SODIUM 133 mmol/L (135-144)
[2018-05-07 06:53] LABS: POTASSIUM 4.9 mmol/L (3.5-5.1)
[2018-05-07] MEDS: SILVER SULFADIAZINE 1% 25 GM CR TOP ×2 (07:52→21:45)
[2018-05-07] MEDS: INSULIN ASPART [NOVOLOG] 3 ML PEN SC ×4 (07:54→22:10)
[2018-05-07] MEDS: SERTRALINE 50 MG TAB PO (08:44)
[2018-05-07] MEDS: LOSARTAN 50 MG TAB PO ×2 (08:44→21:48)
[2018-05-07] MEDS: NIFEdipine (XL) 60 MG TAB PO (08:44)
[2018-05-07] MEDS: ATORVASTATIN 20 MG TAB PO (21:46)
[2018-05-07] MEDS: DOXAZOSIN 2 MG TAB PO (21:48)
[2018-05-07] MEDS: NIFEdipine (XL) 30 MG TAB PO (21:48)
[2018-05-08] MEDS: ACCU-CHEK XX (02:58)
[2018-05-08 05:38] LABS: ADD MAN DIFF? NO
[2018-05-08 05:41] LABS: BASOPHIL # 0.1 10^3/ul (0.0-0.1); BASOPHILS % 1.3 % (0.0-2.0); EOSINOPHILS # 0.2 10^3/ul (0.0-0.5); EOSINOPHILS % 4.7 % (0.0-7.0); HEMOGLOBIN 9.9 g/dl (12.0-16.0); LYMPHOCYTES # 0.7 10^3/ul (0.8-2.9); LYMPHOCYTES % 17.9 % (15.0-51.0); MEAN CORPUSCULAR HGB CONC 34.1 g/dl (32.0-37.0); MEAN CORPUSCULAR VOLUME 90.9 fl (82.0-101.0); MEAN PLATELET VOLUME 9.8 fl (7.4-10.4); MONOCYTE # 0.5 10^3/ul (0.3-0.9); NEUTROPHIL # 2.4 10^3/ul (1.6-7.5); NEUTROPHILS % 61.3 % (39.0-77.0); PLATELET COUNT 142 10^3/UL (140-415); RED BLOOD COUNT 3.19 10^6/ul (4.20-5.40); RED CELL DISTRIBUTION WIDTH 16.1 % (11.5-14.5)
[2018-05-08 05:41] LABS: WHITE BLOOD COUNT 3.9 10^3/ul (4.8-10.8)
[2018-05-08] MEDS: PANTOPRAZOLE (EC) 40 MG TAB PO (06:00)
[2018-05-08] MEDS: LEVOTHYROXINE 75 MCG TAB PO (06:00)
[2018-05-08 06:23] LABS: ANION GAP 12 (5-13); BLOOD UREA NITROGEN 43 mg/dl (7-20); CALCIUM 8.1 mg/dl (8.4-10.2); CARBON DIOXIDE 27 mmol/L (21-31); CHLORIDE 96 mmol/L (97-110); CREATININE 5.42 mg/dl (0.44-1.00); GLUCOSE 118 mg/dl (70-220); POTASSIUM 4.5 mmol/L (3.5-5.1); SODIUM 135 mmol/L (135-144)
[2018-05-08] MEDS: INSULIN ASPART [NOVOLOG] 3 ML PEN SC ×2 (07:43→12:26)
[2018-05-08] MEDS: NIFEdipine (XL) 60 MG TAB PO (09:02)
[2018-05-08] MEDS: LOSARTAN 50 MG TAB PO (09:02)
[2018-05-08] MEDS: SERTRALINE 50 MG TAB PO (09:02)
[2018-05-08] MEDS: SILVER SULFADIAZINE 1% 25 GM CR TOP (09:03)
== END 2018-05-08 14:31 | disposition home health service (06) | DRG 917 ==
LOC: 6WM 04-26 01:02 → E/R 13:05 → 6WM 15:23
PROC: 5A1D70Z Performance of Urinary Filtration, Intermittent, Less than 6 Hours Per Day (ICD-10-PCS; principal; 2018-04-28)
DX: T37.5X1A Poisoning by antiviral drugs, accidental (unintentional), initial encounter (principal); N18.6 End stage renal disease; G92 Toxic encephalopathy; I13.2 Hypertensive heart and chronic kidney disease with heart failure and with stage 5 chronic kidney disease, or end stage renal disease; I50.32 Chronic diastolic (congestive) heart failure; N39.0 Urinary tract infection, site not specified; T42.6X1A Poisoning by other antiepileptic and sedative-hypnotic drugs, accidental (unintentional), initial encounter; E11.22 Type 2 diabetes mellitus with diabetic chronic kidney disease; E03.9 Hypothyroidism, unspecified; E78.5 Hyperlipidemia, unspecified; E11.649 Type 2 diabetes mellitus with hypoglycemia without coma; K21.9 Gastro-esophageal reflux disease without esophagitis; D63.1 Anemia in chronic kidney disease; B02.9 Zoster without complications; I25.10 Atherosclerotic heart disease of native coronary artery without angina pectoris; D69.6 Thrombocytopenia, unspecified; Z99.2 Dependence on renal dialysis; Z87.11 Personal history of peptic ulcer disease; Z79.4 Long term (current) use of insulin; Y92.009 Unspecified place in unspecified non-institutional (private) residence as the place of occurrence of the external cause
CPT/HCPCS: 36415; 70450; 71045; 80048; 80053; 80061; 81001; 82607; 82728; 82746; 82962; 83036; 83540; 83690; 84100; 84443; 84484; 85025; 86320; 86706; 87086; 87340; 90935; 93005; 97116; 97162; 97530; 99217; 99291-25; G0378

== ENCOUNTER 2018-08-29 17:37 | Inpatient (IN) | payer BC ==
[2018-08-29 18:32] LABS: ADD MAN DIFF? NO
[2018-08-29 18:36] LABS: WHITE BLOOD COUNT 12.6 10^3/ul (4.8-10.8)
[2018-08-29 18:36] LABS: ABNORMAL IP MESSAGE 1; BASOPHIL # 0.1 10^3/ul (0.0-0.1); BASOPHILS % 0.6 % (0.0-2.0); EOSINOPHILS # 0.1 10^3/ul (0.0-0.5); EOSINOPHILS % 1.1 % (0.0-7.0); HEMATOCRIT 30.7 % (37.0-47.0); HEMOGLOBIN 9.9 g/dl (12.0-16.0); LYMPHOCYTES # 0.3 10^3/ul (0.8-2.9); LYMPHOCYTES % 2.7 % (15.0-51.0); MEAN CORPUSCULAR HEMOGLOBIN 31.9 pg (29.0-33.0); MEAN CORPUSCULAR HGB CONC 32.2 g/dl (32.0-37.0); MEAN PLATELET VOLUME 9.2 fl (7.4-10.4); MONOCYTE # 0.9 10^3/ul (0.3-0.9); MONOCYTES % 7.4 % (0.0-11.0); NEUTROPHILS % 87.3 % (39.0-77.0); PLATELET COUNT 186 10^3/UL (140-415); RED CELL DISTRIBUTION WIDTH 14.1 % (11.5-14.5)
[2018-08-29 18:37] LABS: POSITIVE DIFF @See below
[2018-08-29 18:50] LABS: ALBUMIN 4.8 g/dl (3.3-4.9); ALKALINE PHOSPHATASE 166 IU/L (42-121); ANION GAP 14 (5-13); ASPARTATE AMINO TRANSFERASE 34 IU/L (15-46); BILIRUBIN,INDIRECT 0.1 mg/dl (0-1.1); BILIRUBIN,TOTAL 0.1 mg/dl (0.2-1.3); BLOOD UREA NITROGEN 19 mg/dl (7-20); CALCIUM 9.7 mg/dl (8.4-10.2); CARBON DIOXIDE 34 mmol/L (21-31); CHLORIDE 92 mmol/L (97-110); CREATININE 3.44 mg/dl (0.44-1.00); GLUCOSE 107 mg/dl (70-220); POTASSIUM 4.2 mmol/L (3.5-5.1); SODIUM 140 mmol/L (135-144); TOTAL PROTEIN 9.6 g/dl (6.1-8.1)
[2018-08-29 18:53] LABS: ALANINE AMINOTRANSFERASE < 6 IU/L (13-69)
[2018-08-29 19:03] LABS: TROPONIN-I 0.045 ng/ml (0.000-0.120)
[2018-08-29 19:45] LABS: AADO2 Arterial 96.7 mmHg (7.0-24.0); Allen Test ACCEPTAB; Arterial Base Excess 7.5 mmol/L (-3.0-3); Arterial Blood Gas Oxygen Sat 97.7 mmHG (95.0-100.0); Arterial Fraction of Oxyhgb 96.6 % (93.0-99.0); Arterial HCO3 31.3 mmol/L (22.0-26.0); Arterial MetHb 0.1 % (0.0-1.5); Arterial pCO2 40.9 mmhg (35-45); Blood Gas IEPAP 15/5; Blood Gas PS 10; MODE MASK - BIPAP; Site Right Radial
[2018-08-29] MEDS ORDERED: ONDANSETRON 4 MG INJ IV (20:00)
[2018-08-29] MEDS ORDERED: ACETAMINOPHEN 325 MG TAB PO (20:00)
[2018-08-29 23:53] LABS: HEPATITIS B SURFACE ANTIGEN NEGATIVE (NEGATIVE)
[2018-08-30 08:36] LABS: ADD MAN DIFF? NO
[2018-08-30] MEDS: AZITHROMYCIN 250 MG TAB PO (08:41)
[2018-08-30 08:46] LABS: ABNORMAL IP MESSAGE 1; BASOPHIL # 0.1 10^3/ul (0.0-0.1); BASOPHILS % 0.5 % (0.0-2.0); EOSINOPHILS # 0.2 10^3/ul (0.0-0.5); EOSINOPHILS % 1.5 % (0.0-7.0); HEMATOCRIT 30.5 % (37.0-47.0); HEMOGLOBIN 9.7 g/dl (12.0-16.0); LYMPHOCYTES # 0.5 10^3/ul (0.8-2.9); LYMPHOCYTES % 4.3 % (15.0-51.0); MEAN CORPUSCULAR HEMOGLOBIN 31.8 pg (29.0-33.0); MEAN CORPUSCULAR HGB CONC 31.8 g/dl (32.0-37.0); MEAN PLATELET VOLUME 9.2 fl (7.4-10.4); MONOCYTE # 1.1 10^3/ul (0.3-0.9); MONOCYTES % 9.4 % (0.0-11.0); NEUTROPHIL # 9.6 10^3/ul (1.6-7.5); NEUTROPHILS % 83.7 % (39.0-77.0); PLATELET COUNT 213 10^3/UL (140-415); RED BLOOD COUNT 3.05 10^6/ul (4.20-5.40); RED CELL DISTRIBUTION WIDTH 13.8 % (11.5-14.5)
[2018-08-30 08:46] LABS: WHITE BLOOD COUNT 11.5 10^3/ul (4.8-10.8)
[2018-08-30 09:05] LABS: IRON 21 ug/dl (35-150)
[2018-08-30 09:08] LABS: ANION GAP 15 (5-13); BLOOD UREA NITROGEN 27 mg/dl (7-20); CALCIUM 9.4 mg/dl (8.4-10.2); CARBON DIOXIDE 32 mmol/L (21-31); CHLORIDE 94 mmol/L (97-110); CREATININE 4.88 mg/dl (0.44-1.00); GLUCOSE 86 mg/dl (70-220); PHOSPHORUS 3.8 mg/dl (2.5-4.9); POTASSIUM 4.7 mmol/L (3.5-5.1); SODIUM 141 mmol/L (135-144)
[2018-08-30 09:13] LABS: POSITIVE DIFF @See below
[2018-08-30 09:14] LABS: % IRON SATURATION 13 % SAT (22-52); TOTAL IRON BINDING CAPACITY 166 ug/dl (241-421)
[2018-08-30] MEDS: PANTOPRAZOLE (EC) 40 MG TAB PO (09:52)
[2018-08-30] MEDS: LEVOTHYROXINE 75 MCG TAB PO (09:52)
[2018-08-30] MEDS: SERTRALINE 50 MG TAB PO (09:52)
[2018-08-30] MEDS: MULTIVIT/CA CARB/B CMPLX/FA TAB PO (09:52)
[2018-08-30] MEDS: LOSARTAN 50 MG TAB PO ×2 (09:53→20:31)
[2018-08-30] MEDS: LINAGLIPTIN 5 MG TABLET PO (09:53)
[2018-08-30] MEDS: NIFEdipine (XL) 60 MG TAB PO (09:53)
[2018-08-30] MEDS: ACETAMINOPHEN 325 MG TAB PO (10:00)
[2018-08-30] MEDS ORDERED: DEXTROSE 50% 50 ML SYRINGE IV ×2 (10:00)
[2018-08-30] MEDS ORDERED: GLUCAGON 1 MG INJ IM (10:00)
[2018-08-30] MEDS ORDERED: GLUCOSE GEL 15 GRAM TUBE PO ×2 (10:00)
[2018-08-30] MEDS: CEFTRIAXONE 1,000 MG in SOD CHLORIDE 0.9% 50 ML IVPB (11:04)
[2018-08-30 11:08] LABS: INR 1.06; PROTIME 13.9 Sec (11.9-14.9); PT RATIO 1.1
[2018-08-30] MEDS ORDERED: INSULIN ASPART [NOVOLOG] 3 ML PEN SC (11:20)
[2018-08-30] MEDS: Insulin NOVOLOG SS MILD Algorithm (NPO/TPN/ENTERAL FEEDS) SC ×2 (12:15→17:25)
[2018-08-30] MEDS: LIDOCAINE 1% (MPF) 5 ML VIAL (14:39)
[2018-08-30] MEDS: ALBUMIN HUMAN 25% 50 ML IV ×2 (15:50→15:52)
[2018-08-30] MEDS: EPOETIN 10000 UNITS/1 ML INJ (ESRD) SC (18:13)
[2018-08-30] MEDS: CLONIDINE 0.3 MG/24 HR PATCH TRANSDERM (20:30)
[2018-08-30] MEDS: ATORVASTATIN 20 MG TAB PO (20:31)
[2018-08-30] MEDS: DOXAZOSIN 2 MG TAB PO (20:31)
[2018-08-30] MEDS: NIFEdipine (XL) 30 MG TAB PO (20:31)
[2018-08-30] MEDS: INSULIN DETEMIR [LEVEMIR] (100 UNITS/ML) SYG SC (20:43)
[2018-08-31] MEDS: ACCU-CHEK XX (02:09)
[2018-08-31] MEDS: PANTOPRAZOLE (EC) 40 MG TAB PO (06:11)
[2018-08-31] MEDS: LEVOTHYROXINE 75 MCG TAB PO (06:11)
[2018-08-31 07:04] LABS: ADD MAN DIFF? NO
[2018-08-31 07:06] LABS: BASOPHIL # 0.1 10^3/ul (0.0-0.1); BASOPHILS % 0.5 % (0.0-2.0); EOSINOPHILS # 0.3 10^3/ul (0.0-0.5); EOSINOPHILS % 2.9 % (0.0-7.0); HEMATOCRIT 29.8 % (37.0-47.0); HEMOGLOBIN 9.5 g/dl (12.0-16.0); LYMPHOCYTES # 0.8 10^3/ul (0.8-2.9); LYMPHOCYTES % 7.3 % (15.0-51.0); MEAN CORPUSCULAR HEMOGLOBIN 31.5 pg (29.0-33.0); MEAN CORPUSCULAR HGB CONC 31.9 g/dl (32.0-37.0); MEAN CORPUSCULAR VOLUME 98.7 fl (82.0-101.0); MONOCYTES % 9.5 % (0.0-11.0); NEUTROPHIL # 8.1 10^3/ul (1.6-7.5); PLATELET COUNT 232 10^3/UL (140-415); RED BLOOD COUNT 3.02 10^6/ul (4.20-5.40); RED CELL DISTRIBUTION WIDTH 13.5 % (11.5-14.5)
[2018-08-31 07:06] LABS: WHITE BLOOD COUNT 10.2 10^3/ul (4.8-10.8)
[2018-08-31] MEDS: Insulin NOVOLOG SS MILD Algorithm (NPO/TPN/ENTERAL FEEDS) SC ×3 (07:25→17:12)
[2018-08-31] MEDS: GLUCOSE GEL 15 GRAM TUBE BUCCAL (08:24)
[2018-08-31] MEDS: AZITHROMYCIN 250 MG TAB PO (08:31)
[2018-08-31] MEDS: MULTIVIT/CA CARB/B CMPLX/FA TAB PO (08:31)
[2018-08-31] MEDS: LOSARTAN 50 MG TAB PO ×2 (08:32→20:47)
[2018-08-31] MEDS: LINAGLIPTIN 5 MG TABLET PO (08:33)
[2018-08-31] MEDS: NIFEdipine (XL) 60 MG TAB PO (08:33)
[2018-08-31] MEDS: SERTRALINE 50 MG TAB PO (08:33)
[2018-08-31] MEDS: CEFTRIAXONE 1,000 MG in SOD CHLORIDE 0.9% 50 ML IVPB (11:36)
[2018-08-31] MEDS: SOD FERRIC GLUC COMPLX 125 MG in SOD CHLORIDE 0.9% 100 ML IVPB (13:41)
[2018-08-31] MEDS: ATORVASTATIN 20 MG TAB PO (20:48)
[2018-08-31] MEDS: NIFEdipine (XL) 30 MG TAB PO (20:48)
[2018-08-31] MEDS: DOXAZOSIN 2 MG TAB PO (20:48)
[2018-08-31] MEDS: INSULIN DETEMIR [LEVEMIR] (100 UNITS/ML) SYG SC (21:03)
[2018-09-01] MEDS: ACCU-CHEK XX (03:00)
[2018-09-01] MEDS: PANTOPRAZOLE (EC) 40 MG TAB PO (06:06)
[2018-09-01] MEDS: LEVOTHYROXINE 75 MCG TAB PO (06:06)
[2018-09-01] MEDS: Insulin NOVOLOG SS MILD Algorithm (NPO/TPN/ENTERAL FEEDS) SC ×3 (07:25→17:22)
[2018-09-01 08:10] LABS: ADD MAN DIFF? NO
[2018-09-01] MEDS: MULTIVIT/CA CARB/B CMPLX/FA TAB PO (08:17)
[2018-09-01] MEDS: LOSARTAN 50 MG TAB PO ×2 (08:17→21:21)
[2018-09-01] MEDS: AZITHROMYCIN 250 MG TAB PO (08:17)
[2018-09-01] MEDS: NIFEdipine (XL) 60 MG TAB PO (08:17)
[2018-09-01] MEDS: SERTRALINE 50 MG TAB PO (08:18)
[2018-09-01] MEDS: LINAGLIPTIN 5 MG TABLET PO (08:18)
[2018-09-01 08:21] LABS: BASOPHIL # 0.1 10^3/ul (0.0-0.1); BASOPHILS % 0.7 % (0.0-2.0); EOSINOPHILS # 0.5 10^3/ul (0.0-0.5); EOSINOPHILS % 4.4 % (0.0-7.0); HEMATOCRIT 30.2 % (37.0-47.0); HEMOGLOBIN 9.6 g/dl (12.0-16.0); LYMPHOCYTES # 0.9 10^3/ul (0.8-2.9); LYMPHOCYTES % 8.4 % (15.0-51.0); MEAN CORPUSCULAR HEMOGLOBIN 31.6 pg (29.0-33.0); MEAN CORPUSCULAR HGB CONC 31.8 g/dl (32.0-37.0); MEAN CORPUSCULAR VOLUME 99.3 fl (82.0-101.0); MEAN PLATELET VOLUME 9.3 fl (7.4-10.4); MONOCYTE # 1.1 10^3/ul (0.3-0.9); MONOCYTES % 10.4 % (0.0-11.0); NEUTROPHIL # 7.8 10^3/ul (1.6-7.5); NEUTROPHILS % 73.9 % (39.0-77.0); PLATELET COUNT 247 10^3/UL (140-415); RED BLOOD COUNT 3.04 10^6/ul (4.20-5.40); RED CELL DISTRIBUTION WIDTH 13.4 % (11.5-14.5)
[2018-09-01 08:21] LABS: WHITE BLOOD COUNT 10.5 10^3/ul (4.8-10.8)
[2018-09-01 08:33] LABS: ANION GAP 14 (5-13); BLOOD UREA NITROGEN 58 mg/dl (7-20); CALCIUM 9.6 mg/dl (8.4-10.2); CARBON DIOXIDE 29 mmol/L (21-31); CHLORIDE 96 mmol/L (97-110); CREATININE 7.03 mg/dl (0.44-1.00); GLUCOSE 118 mg/dl (70-220); POTASSIUM 5.7 mmol/L (3.5-5.1); SODIUM 139 mmol/L (135-144)
[2018-09-01 08:34] LABS: PHOSPHORUS 3.5 mg/dl (2.5-4.9)
[2018-09-01] MEDS: ALBUMIN HUMAN 25% 50 ML IV ×2 (10:28→11:06)
[2018-09-01] MEDS: SOD FERRIC GLUC COMPLX 125 MG in SOD CHLORIDE 0.9% 100 ML IVPB (13:27)
[2018-09-01] MEDS: CEFTRIAXONE 1 GM/NS 50 ML IVPB (13:27)
[2018-09-01] MEDS: DOXAZOSIN 2 MG TAB PO (21:00)
[2018-09-01] MEDS: ATORVASTATIN 20 MG TAB PO (21:21)
[2018-09-01] MEDS: INSULIN DETEMIR [LEVEMIR] (100 UNITS/ML) SYG SC (21:41)
[2018-09-02] MEDS: ACCU-CHEK XX (02:00)
[2018-09-02] MEDS: PANTOPRAZOLE (EC) 40 MG TAB PO (06:05)
[2018-09-02] MEDS: LEVOTHYROXINE 75 MCG TAB PO (06:06)
[2018-09-02 06:30] LABS: ADD MAN DIFF? NO
[2018-09-02 06:46] LABS: WHITE BLOOD COUNT 9.3 10^3/ul (4.8-10.8)
[2018-09-02 06:46] LABS: BASOPHIL # 0.1 10^3/ul (0.0-0.1); BASOPHILS % 0.6 % (0.0-2.0); EOSINOPHILS # 0.3 10^3/ul (0.0-0.5); EOSINOPHILS % 3.7 % (0.0-7.0); HEMATOCRIT 30.3 % (37.0-47.0); HEMOGLOBIN 9.7 g/dl (12.0-16.0); LYMPHOCYTES # 0.8 10^3/ul (0.8-2.9); LYMPHOCYTES % 8.8 % (15.0-51.0); MEAN CORPUSCULAR HEMOGLOBIN 31.5 pg (29.0-33.0); MEAN CORPUSCULAR VOLUME 98.4 fl (82.0-101.0); MEAN PLATELET VOLUME 9.1 fl (7.4-10.4); MONOCYTES % 10.9 % (0.0-11.0); NEUTROPHIL # 6.7 10^3/ul (1.6-7.5); NEUTROPHILS % 72.5 % (39.0-77.0); NUCLEATED RED BLOOD CELLS% 0.2 /100WBC (0.0-0.0); PLATELET COUNT 278 10^3/UL (140-415); RED BLOOD COUNT 3.08 10^6/ul (4.20-5.40); RED CELL DISTRIBUTION WIDTH 13.2 % (11.5-14.5)
[2018-09-02] MEDS: Insulin NOVOLOG SS MILD Algorithm (NPO/TPN/ENTERAL FEEDS) SC ×3 (07:25→17:14)
[2018-09-02 07:34] LABS: ANION GAP 15 (5-13); BLOOD UREA NITROGEN 45 mg/dl (7-20); CALCIUM 9.6 mg/dl (8.4-10.2); CARBON DIOXIDE 31 mmol/L (21-31); CHLORIDE 96 mmol/L (97-110); CREATININE 4.96 mg/dl (0.44-1.00); GLUCOSE 126 mg/dl (70-220); POTASSIUM 5.1 mmol/L (3.5-5.1); SODIUM 142 mmol/L (135-144)
[2018-09-02] MEDS: NIFEdipine (XL) 60 MG TAB PO (08:19)
[2018-09-02] MEDS: MULTIVIT/CA CARB/B CMPLX/FA TAB PO (08:19)
[2018-09-02] MEDS: LOSARTAN 50 MG TAB PO ×2 (08:19→21:01)
[2018-09-02] MEDS: LINAGLIPTIN 5 MG TABLET PO (08:20)
[2018-09-02] MEDS: SERTRALINE 50 MG TAB PO (08:20)
[2018-09-02] MEDS: AZITHROMYCIN 250 MG TAB PO (08:20)
[2018-09-02] MEDS ORDERED: NIFEdipine (XL) 60 MG TAB PO (10:00)
[2018-09-02] MEDS: SOD FERRIC GLUC COMPLX 125 MG in SOD CHLORIDE 0.9% 100 ML IVPB (13:00)
[2018-09-02] MEDS ORDERED: EPOETIN 10000 UNITS/1 ML INJ (ESRD) SC (17:00)
[2018-09-02] MEDS: EPOETIN 10000 UNITS/1 ML INJ (ESRD) SC (17:09)
[2018-09-02] MEDS: ATORVASTATIN 20 MG TAB PO (21:00)
[2018-09-02] MEDS: DOXAZOSIN 2 MG TAB PO (21:01)
[2018-09-02] MEDS: INSULIN DETEMIR [LEVEMIR] (100 UNITS/ML) SYG SC (21:23)
[2018-09-03] MEDS: ACCU-CHEK XX (01:50)
[2018-09-03] MEDS: PANTOPRAZOLE (EC) 40 MG TAB PO (05:22)
[2018-09-03] MEDS: LEVOTHYROXINE 75 MCG TAB PO (05:22)
[2018-09-03 06:46] LABS: ADD MAN DIFF? NO
[2018-09-03 06:52] LABS: BASOPHIL # 0.1 10^3/ul (0.0-0.1); BASOPHILS % 0.7 % (0.0-2.0); EOSINOPHILS # 0.5 10^3/ul (0.0-0.5); EOSINOPHILS % 3.8 % (0.0-7.0); HEMATOCRIT 30.2 % (37.0-47.0); HEMOGLOBIN 9.7 g/dl (12.0-16.0); LYMPHOCYTES # 0.8 10^3/ul (0.8-2.9); LYMPHOCYTES % 6.9 % (15.0-51.0); MEAN CORPUSCULAR HEMOGLOBIN 31.2 pg (29.0-33.0); MEAN CORPUSCULAR HGB CONC 32.1 g/dl (32.0-37.0); MEAN CORPUSCULAR VOLUME 97.1 fl (82.0-101.0); MEAN PLATELET VOLUME 8.6 fl (7.4-10.4); MONOCYTES % 8.2 % (0.0-11.0); NEUTROPHIL # 9.3 10^3/ul (1.6-7.5); NEUTROPHILS % 75.4 % (39.0-77.0); NUCLEATED RED BLOOD CELLS% 0.2 /100WBC (0.0-0.0); PLATELET COUNT 284 10^3/UL (140-415); RED BLOOD COUNT 3.11 10^6/ul (4.20-5.40); RED CELL DISTRIBUTION WIDTH 13.4 % (11.5-14.5)
[2018-09-03 06:52] LABS: WHITE BLOOD COUNT 12.3 10^3/ul (4.8-10.8)
[2018-09-03 07:16] LABS: PHOSPHORUS 4.9 mg/dl (2.5-4.9)
[2018-09-03 07:16] LABS: MAGNESIUM 2.5 mg/dl (1.7-2.5)
[2018-09-03 07:19] LABS: C-REACTIVE PROTEIN 7.3 mg/dl (0.0-0.9)
[2018-09-03] MEDS: SERTRALINE 50 MG TAB PO (07:54)
[2018-09-03] MEDS: MULTIVIT/CA CARB/B CMPLX/FA TAB PO (07:54)
[2018-09-03] MEDS: NIFEdipine (XL) 60 MG TAB PO (07:54)
[2018-09-03] MEDS: LINAGLIPTIN 5 MG TABLET PO (07:54)
[2018-09-03] MEDS: LOSARTAN 50 MG TAB PO ×2 (07:54→21:05)
[2018-09-03] MEDS: AZITHROMYCIN 250 MG TAB PO (07:54)
[2018-09-03] MEDS: Insulin NOVOLOG SS MILD Algorithm (NPO/TPN/ENTERAL FEEDS) SC ×3 (08:22→17:24)
[2018-09-03] MEDS: ACETAMINOPHEN 325 MG TAB PO ×2 (12:49→21:17)
[2018-09-03] MEDS: SOD FERRIC GLUC COMPLX 125 MG in SOD CHLORIDE 0.9% 100 ML IVPB (13:01)
[2018-09-03] MEDS: ATORVASTATIN 20 MG TAB PO (21:05)
[2018-09-03] MEDS: INSULIN DETEMIR [LEVEMIR] (100 UNITS/ML) SYG SC (21:22)
[2018-09-03] MEDS: DOXAZOSIN 2 MG TAB PO (21:52)
[2018-09-04] MEDS: ACCU-CHEK XX (02:00)
[2018-09-04] MEDS: PANTOPRAZOLE (EC) 40 MG TAB PO (06:00)
[2018-09-04 06:08] LABS: ADD MAN DIFF? NO
[2018-09-04 06:18] LABS: WHITE BLOOD COUNT 12.4 10^3/ul (4.8-10.8)
[2018-09-04 06:18] LABS: ABNORMAL IP MESSAGE 1; BASOPHIL # 0.1 10^3/ul (0.0-0.1); BASOPHILS % 0.6 % (0.0-2.0); EOSINOPHILS # 0.3 10^3/ul (0.0-0.5); EOSINOPHILS % 2.2 % (0.0-7.0); LYMPHOCYTES # 0.6 10^3/ul (0.8-2.9); MEAN CORPUSCULAR HEMOGLOBIN 31.8 pg (29.0-33.0); MEAN CORPUSCULAR HGB CONC 33.3 g/dl (32.0-37.0); MEAN CORPUSCULAR VOLUME 95.5 fl (82.0-101.0); MEAN PLATELET VOLUME 8.6 fl (7.4-10.4); MONOCYTE # 0.9 10^3/ul (0.3-0.9); MONOCYTES % 7.3 % (0.0-11.0); NEUTROPHIL # 10.2 10^3/ul (1.6-7.5); NEUTROPHILS % 82.1 % (39.0-77.0); NUCLEATED RED BLOOD CELLS% 0.2 /100WBC (0.0-0.0); PLATELET COUNT 251 10^3/UL (140-415); RED BLOOD COUNT 3.14 10^6/ul (4.20-5.40); RED CELL DISTRIBUTION WIDTH 13.2 % (11.5-14.5)
[2018-09-04] MEDS: LEVOTHYROXINE 75 MCG TAB PO (06:23)
[2018-09-04 06:31] LABS: ANION GAP 14 (5-13); BLOOD UREA NITROGEN 46 mg/dl (7-20); CALCIUM 9.4 mg/dl (8.4-10.2); CARBON DIOXIDE 32 mmol/L (21-31); CHLORIDE 96 mmol/L (97-110); CREATININE 4.99 mg/dl (0.44-1.00); GLUCOSE 144 mg/dl (70-220); POTASSIUM 4.4 mmol/L (3.5-5.1); SODIUM 142 mmol/L (135-144)
[2018-09-04 06:34] LABS: POSITIVE DIFF @See below
[2018-09-04 06:35] LABS: LYMPHOCYTES % 4.4 % (15.0-51.0)
[2018-09-04] MEDS: Insulin NOVOLOG SS MILD Algorithm (NPO/TPN/ENTERAL FEEDS) SC ×3 (07:25→17:26)
[2018-09-04] MEDS: SERTRALINE 50 MG TAB PO (08:17)
[2018-09-04] MEDS: NIFEdipine (XL) 60 MG TAB PO (08:17)
[2018-09-04] MEDS: MULTIVIT/CA CARB/B CMPLX/FA TAB PO (08:18)
[2018-09-04] MEDS: LOSARTAN 50 MG TAB PO ×2 (08:18→20:49)
[2018-09-04] MEDS: LINAGLIPTIN 5 MG TABLET PO (08:19)
[2018-09-04] MEDS: AMOXICILLIN/CLAV 500 MG TAB PO (08:22)
[2018-09-04] MEDS: REGADENOSON 0.4 MG/5 ML SYG (10:17)
[2018-09-04 11:51] LABS: PROCALCITONIN 1.64 ng/mL (<0.10)
[2018-09-04] MEDS: SOD FERRIC GLUC COMPLX 125 MG in SOD CHLORIDE 0.9% 100 ML IVPB (12:29)
[2018-09-04] MEDS: EPOETIN 10000 UNITS/1 ML INJ (ESRD) SC (17:29)
[2018-09-04] MEDS: ATORVASTATIN 20 MG TAB PO (20:48)
[2018-09-04] MEDS: NIFEdipine (XL) 30 MG TAB PO (20:49)
[2018-09-04] MEDS: DOXAZOSIN 2 MG TAB PO (20:50)
[2018-09-04] MEDS: INSULIN DETEMIR [LEVEMIR] (100 UNITS/ML) SYG SC (21:16)
[2018-09-05] MEDS: ACCU-CHEK XX (02:00)
[2018-09-05] MEDS: LEVOTHYROXINE 75 MCG TAB PO (06:39)
[2018-09-05] MEDS: PANTOPRAZOLE (EC) 40 MG TAB PO (06:39)
[2018-09-05 06:53] LABS: ADD MAN DIFF? NO
[2018-09-05 07:01] LABS: BASOPHIL # 0.1 10^3/ul (0.0-0.1); BASOPHILS % 0.6 % (0.0-2.0); EOSINOPHILS # 0.4 10^3/ul (0.0-0.5); EOSINOPHILS % 2.4 % (0.0-7.0); HEMATOCRIT 29.5 % (37.0-47.0); HEMOGLOBIN 9.7 g/dl (12.0-16.0); MEAN CORPUSCULAR HEMOGLOBIN 31.5 pg (29.0-33.0); MEAN CORPUSCULAR HGB CONC 32.9 g/dl (32.0-37.0); MEAN CORPUSCULAR VOLUME 95.8 fl (82.0-101.0); MEAN PLATELET VOLUME 8.6 fl (7.4-10.4); NEUTROPHIL # 13.5 10^3/ul (1.6-7.5); NUCLEATED RED BLOOD CELLS% 0.1 /100WBC (0.0-0.0); PLATELET COUNT 265 10^3/UL (140-415); RED BLOOD COUNT 3.08 10^6/ul (4.20-5.40); RED CELL DISTRIBUTION WIDTH 13.3 % (11.5-14.5)
[2018-09-05 07:01] LABS: WHITE BLOOD COUNT 16.3 10^3/ul (4.8-10.8)
[2018-09-05] MEDS: Insulin NOVOLOG SS MILD Algorithm (NPO/TPN/ENTERAL FEEDS) SC ×3 (07:25→17:48)
[2018-09-05 07:26] LABS: ANION GAP 13 (5-13); BLOOD UREA NITROGEN 67 mg/dl (7-20); CALCIUM 9.1 mg/dl (8.4-10.2); CARBON DIOXIDE 26 mmol/L (21-31); CHLORIDE 96 mmol/L (97-110); CREATININE 7.02 mg/dl (0.44-1.00); GLUCOSE 54 mg/dl (70-220); PHOSPHORUS 5.3 mg/dl (2.5-4.9); POTASSIUM 4.6 mmol/L (3.5-5.1); SODIUM 135 mmol/L (135-144)
[2018-09-05] MEDS: LOSARTAN 50 MG TAB PO ×2 (08:36→20:32)
[2018-09-05] MEDS: NIFEdipine (XL) 60 MG TAB PO (08:36)
[2018-09-05] MEDS: AMOXICILLIN/CLAV 500 MG TAB PO (08:37)
[2018-09-05] MEDS: LINAGLIPTIN 5 MG TABLET PO (08:37)
[2018-09-05] MEDS: MULTIVIT/CA CARB/B CMPLX/FA TAB PO (08:37)
[2018-09-05] MEDS: SERTRALINE 50 MG TAB PO (08:37)
[2018-09-05] MEDS: ATORVASTATIN 20 MG TAB PO (20:32)
[2018-09-05] MEDS: NIFEdipine (XL) 30 MG TAB PO (20:32)
[2018-09-05] MEDS: INSULIN DETEMIR [LEVEMIR] (100 UNITS/ML) SYG SC (20:40)
[2018-09-05] MEDS: DOXAZOSIN 2 MG TAB PO (22:49)
[2018-09-06] MEDS: ACCU-CHEK XX (02:00)
[2018-09-06] MEDS: LEVOTHYROXINE 75 MCG TAB PO (06:06)
[2018-09-06] MEDS: PANTOPRAZOLE (EC) 40 MG TAB PO (06:06)
[2018-09-06 06:28] LABS: ADD MAN DIFF? NO
[2018-09-06 06:30] LABS: WHITE BLOOD COUNT 10.5 10^3/ul (4.8-10.8)
[2018-09-06 06:30] LABS: BASOPHIL # 0.1 10^3/ul (0.0-0.1); BASOPHILS % 0.6 % (0.0-2.0); EOSINOPHILS # 0.3 10^3/ul (0.0-0.5); EOSINOPHILS % 2.7 % (0.0-7.0); HEMATOCRIT 27.7 % (37.0-47.0); LYMPHOCYTES # 0.7 10^3/ul (0.8-2.9); LYMPHOCYTES % 6.2 % (15.0-51.0); MEAN CORPUSCULAR HEMOGLOBIN 31.8 pg (29.0-33.0); MEAN CORPUSCULAR HGB CONC 32.5 g/dl (32.0-37.0); MEAN CORPUSCULAR VOLUME 97.9 fl (82.0-101.0); MEAN PLATELET VOLUME 8.5 fl (7.4-10.4); MONOCYTE # 0.9 10^3/ul (0.3-0.9); MONOCYTES % 8.2 % (0.0-11.0); NEUTROPHIL # 8.4 10^3/ul (1.6-7.5); NEUTROPHILS % 79.5 % (39.0-77.0); PLATELET COUNT 253 10^3/UL (140-415); RED BLOOD COUNT 2.83 10^6/ul (4.20-5.40); RED CELL DISTRIBUTION WIDTH 13.9 % (11.5-14.5)
[2018-09-06] MEDS: Insulin NOVOLOG SS MILD Algorithm (NPO/TPN/ENTERAL FEEDS) SC ×2 (07:22→11:32)
[2018-09-06] MEDS: LINAGLIPTIN 5 MG TABLET PO (08:32)
[2018-09-06] MEDS: LOSARTAN 50 MG TAB PO (08:33)
[2018-09-06] MEDS: MULTIVIT/CA CARB/B CMPLX/FA TAB PO (08:33)
[2018-09-06] MEDS: NIFEdipine (XL) 60 MG TAB PO (08:33)
[2018-09-06] MEDS: SERTRALINE 50 MG TAB PO (08:33)
[2018-09-06] MEDS: AMOXICILLIN/CLAV 500 MG TAB PO (08:34)
[2018-09-06] MEDS: CLONIDINE 0.3 MG/24 HR PATCH TRANSDERM (11:50)
== END 2018-09-06 16:00 | disposition home or self-care (01) | DRG 291 ==
LOC: E/R 17:37 → TEL 19:46
PROVIDERS: Internal Medicine
PROC: 5A1D70Z Performance of Urinary Filtration, Intermittent, Less than 6 Hours Per Day (ICD-10-PCS; 2018-08-29)
PROC: 5A09357 Assistance with Respiratory Ventilation, Less than 24 Consecutive Hours, Continuous Positive Airway Pressure (ICD-10-PCS; 2018-08-29)
PROC: 0W993ZX Drainage of Right Pleural Cavity, Percutaneous Approach, Diagnostic (ICD-10-PCS; principal; 2018-08-30)
DX: I13.2 Hypertensive heart and chronic kidney disease with heart failure and with stage 5 chronic kidney disease, or end stage renal disease (principal); N18.6 End stage renal disease; I50.33 Acute on chronic diastolic (congestive) heart failure; J96.01 Acute respiratory failure with hypoxia; J14 Pneumonia due to Hemophilus influenzae; J90 Pleural effusion, not elsewhere classified; B02.29 Other postherpetic nervous system involvement; E11.22 Type 2 diabetes mellitus with diabetic chronic kidney disease; Z99.2 Dependence on renal dialysis; E78.5 Hyperlipidemia, unspecified; E03.9 Hypothyroidism, unspecified; D63.1 Anemia in chronic kidney disease; K21.9 Gastro-esophageal reflux disease without esophagitis; I25.10 Atherosclerotic heart disease of native coronary artery without angina pectoris
CPT/HCPCS: 36415; 36600; 71045; 76942; 78452; 80048; 80053; 82607; 82728; 82803; 82962; 83540; 83735; 84100; 84145; 84443; 84484; 85025; 85610; 85651; 85730; 86140; 87040; 87070; 87081; 87340; 87400; 88104; 88302; 88305; 88341; 88342; 90935; 93005; 93017; 93306; 94660; 97116; 97161; 97530; 99291-25

== ENCOUNTER 2018-12-21 18:13 | Emergency (ER) | payer BC ==
[2018-12-21] MEDS: DESMOPRESSIN 20 MCG in SOD CHLORIDE 0.9% 50 ML IVPB (20:39)
[2018-12-21] MEDS: TRANEXAMIC ACID 1GM/100ML(PMX) 100 ML IV (20:39)
[2018-12-21] MEDS: hydrALAzine 20 MG INJ IV (21:28)
== END 2018-12-21 21:43 | disposition home or self-care (01) ==
LOC: E/R 18:13
DX: T82.838A Hemorrhage due to vascular prosthetic devices, implants and grafts, initial encounter (principal); I13.2 Hypertensive heart and chronic kidney disease with heart failure and with stage 5 chronic kidney disease, or end stage renal disease; I50.9 Heart failure, unspecified; N18.6 End stage renal disease; Y71.2 Prosthetic and other implants, materials and accessory cardiovascular devices associated with adverse incidents; Z79.4 Long term (current) use of insulin
CPT/HCPCS: 96374; 96375; 99284-25

== ENCOUNTER 2019-02-10 23:47 | Emergency (ER) | payer BC | END 2019-02-11 04:03 | disposition home or self-care (01) | LOC: E/R 23:47 | DX: S00.83XA Contusion of other part of head, initial encounter (principal); I13.2 Hypertensive heart and chronic kidney disease with heart failure and with stage 5 chronic kidney disease, or end stage renal disease; I50.9 Heart failure, unspecified; N18.6 End stage renal disease; E11.22 Type 2 diabetes mellitus with diabetic chronic kidney disease; W01.10XA Fall on same level from slipping, tripping and stumbling with subsequent striking against unspecified object, initial encounter; Y92.9 Unspecified place or not applicable; Z99.2 Dependence on renal dialysis; Z79.4 Long term (current) use of insulin | CPT/HCPCS: 70450; 99284-25 ==

== ENCOUNTER 2019-02-28 07:49 | Day surgery (SDC) | payer BC ==
[2019-02-28 08:55] LABS: ADD MAN DIFF? NO
[2019-02-28 08:56] LABS: WHITE BLOOD COUNT 6.6 10^3/ul (4.8-10.8)
[2019-02-28 08:56] LABS: BASOPHIL # 0.1 10^3/ul (0.0-0.1); BASOPHILS % 1.2 % (0.0-2.0); EOSINOPHILS # 0.4 10^3/ul (0.0-0.5); EOSINOPHILS % 5.8 % (0.0-7.0); HEMATOCRIT 30.8 % (37.0-47.0); LYMPHOCYTES # 1.1 10^3/ul (0.8-2.9); LYMPHOCYTES % 17.1 % (15.0-51.0); MEAN CORPUSCULAR HEMOGLOBIN 30.9 pg (29.0-33.0); MEAN CORPUSCULAR HGB CONC 32.5 g/dl (32.0-37.0); MEAN CORPUSCULAR VOLUME 95.1 fl (82.0-101.0); MEAN PLATELET VOLUME 9.2 fl (7.4-10.4); MONOCYTE # 0.9 10^3/ul (0.3-0.9); MONOCYTES % 13.6 % (0.0-11.0); NEUTROPHIL # 4.1 10^3/ul (1.6-7.5); NEUTROPHILS % 61.7 % (39.0-77.0); PLATELET COUNT 189 10^3/UL (140-415); RED BLOOD COUNT 3.24 10^6/ul (4.20-5.40)
[2019-02-28 09:17] LABS: ALANINE AMINOTRANSFERASE 15 IU/L (13-69); ALBUMIN 3.9 g/dl (3.3-4.9); ALKALINE PHOSPHATASE 136 IU/L (42-121); ANION GAP 9 (5-13); ASPARTATE AMINO TRANSFERASE 26 IU/L (15-46); BILIRUBIN,INDIRECT 0.3 mg/dl (0-1.1); BILIRUBIN,TOTAL 0.3 mg/dl (0.2-1.3); GLUCOSE 122 mg/dl (70-220); POTASSIUM 5.1 mmol/L (3.5-5.1); TOTAL PROTEIN 7.8 g/dl (6.1-8.1)
[2019-02-28 09:21] LABS: CARBON DIOXIDE 34 mmol/L (21-31); CHLORIDE 90 mmol/L (97-110); SODIUM 133 mmol/L (135-144)
[2019-02-28 09:22] LABS: BLOOD UREA NITROGEN 35 mg/dl (7-20); CALCIUM 9.2 mg/dl (8.4-10.2); CREATININE 4.38 mg/dl (0.44-1.00)
[2019-02-28 09:29] LABS: PROTIME 12.3 Sec (11.9-14.9)
[2019-02-28] MEDS ORDERED: ONDANSETRON 4 MG INJ IV (09:30)
[2019-02-28] MEDS ORDERED: FENTAnyl 50 MCG/ML VIAL IV (09:30)
[2019-02-28] MEDS ORDERED: DIPHENHYDRAMINE 50 MG INJ IV (09:30)
[2019-02-28] MEDS ORDERED: hydrALAzine 20 MG INJ IV (09:30)
[2019-02-28] MEDS ORDERED: ALBUTEROL 0.083% (NEB) 2.5 MG/3 ML AMP HHN (09:30)
[2019-02-28] MEDS ORDERED: METOCLOPRAMIDE 10 MG INJ IV (09:30)
[2019-02-28] MEDS ORDERED: LABETALOL HCL 20MG INJ IV (09:30)
[2019-02-28 09:39] LABS: PARTIAL THROMBOPLASTIN TIME 41.2 Sec (23.0-35.0)
[2019-02-28] MEDS ORDERED: PROPOFOL 20 ML (09:51)
[2019-02-28] MEDS ORDERED: GLYCOPYRROLATE 0.4 MG INJ (09:51)
[2019-02-28] MEDS ORDERED: SUCCINYLCHOLINE CHLORIDE 100 MG/5 ML SYG IV (09:51)
[2019-02-28] MEDS ORDERED: CEFAZOLIN 1 GM INJ (09:51)
[2019-02-28] MEDS ORDERED: ROCURONIUM 50 MG INJ (09:51)
[2019-02-28] MEDS ORDERED: LIDOCAINE 100 MG SYRINGE (09:51)
[2019-02-28] MEDS ORDERED: LABETALOL HCL 20MG INJ (10:04)
[2019-02-28] MEDS: POLYMYXIN/BACITRACIN 1L IRRIG IRR (10:11)
[2019-02-28] MEDS: LIDOCAINE 1% (MPF) 30 ML INJ (10:13)
[2019-02-28] MEDS: LIDOCAINE 1%/EPI (1:100,000) (MDV) 20 ML (10:31)
[2019-02-28] MEDS ORDERED: SUGAMMADEX SODIUM 200 MG/2 ML VIAL IV (10:35)
== END 2019-02-28 13:07 | disposition home or self-care (01) ==
LOC: SDS 07:49
DX: I67.1 Cerebral aneurysm, nonruptured (principal); E11.9 Type 2 diabetes mellitus without complications; Z79.4 Long term (current) use of insulin; I12.0 Hypertensive chronic kidney disease with stage 5 chronic kidney disease or end stage renal disease; N18.6 End stage renal disease; Z99.2 Dependence on renal dialysis
CPT/HCPCS: 37609; 71045; 80053; 82962; 85025; 85610; 85730; 88304; 93005